=== PATIENT | male | born 1945 | race Caucasian/White ===

== ENCOUNTER 2017-07-04 07:50 | Outpatient (CLI) | payer MEDICARE, OTHER ==
[~2017-07-04] VITALS: Ht 172.7 cm; Wt 76.4 kg
--- NOTE | ~2017-07-04 | HEMODYNAMI ---
PATIENT:BLAIR ARVIZU MEDICAL RECORD: [id number] : 49 LOCATION:[facility] ADMISSION DATE: 07/04/17 Generatedon:07/04/201711:45 Patient name: BLAIR ARVIZU Patient #: [id number] SSN: : 1945 Date of study: 07/04/2017 Page: Of Hemodynamic Procedure Report Patient Data Patient Demographics Procedure consent was obtained First Name: BLAIR Gender: Male Last Name: LUH : 1945 [facility] Initial: NOLBERTO Age: 71 year(s) Patient #: [id number] Race: Unknown Additional ID: [id number] Contact details [address]: [address] [place] [address] State: [place] City: [place] Zip code: [address] Past Medical History Allergies Allergen Reaction Date Comments Reported Other allergy 07/04/2017 TETANUS VACCINES, TOXOID Admission Admission Data Admission Date: 07/04/2017 Admission Time: 7:50 Height (in.): 5.8 BSA: 0.32 (m2) Height (cm.): 14.73 BMI: 3469.37 (kg/m2) Weight (lbs.): 166 Weight (kg.): 75.3 Lab Results Lab Result Date: 07/04/2017 Lab Result Time: 0:00 Biochemistry Name Units Result Min Max BUN mg/dl 12 --(-*--)-- 7 18 Creatinine mg/dl 1.1 --(--*-)-- 0.6 1.3 CBC Name Units Result Min Max Hemoglobin g/dl 15.7 --(--*-)-- 13.5 17.5 Procedure Procedure Types Cath Procedure Diagnostic Procedure [facility] w/Coronaries FFR/IVUS FFR Initial Intra-Coronary IVUS Initial PCI Procedure Coronary Stent Coronary Stent Initial Miscellaneous Procedures Moderate Sedation up to 30 minutes Procedure Description Procedure Date Procedure Date: 07/04/2017 Procedure Start Time: 11:15 Procedure End Time: 11:45 Procedure Staff Name Function Adrienne Bond RN Nurse Steven Pinedo MD Performing Physician Juan Carlos Lin RT Scrub [facility] RT Monitor Procedure Data Cath Procedure Fluoroscopy Diagnostic fluoroscopy Total fluoroscopy Time: 6.4 time: 6.4 min min Diagnostic fluoroscopy Total fluoroscopy dose: dose: 180.74 mGy 180.74 mGy Contrast Material Contrast Material Type Amount (ml) Isovue 300 95 Entry Location Entry Primary Successful Side Size Upsize Upsize Entry Closure Succes sful Closure Location (Fr) 1 (Fr) 2 (Fr) Remarks Device Remarks Radial Right 6 Fr artery Short Femoral Right 6 Fr Exoseal artery Short Estimated blood loss: 10 ml Diagnostic catheters Device Type Used For End Catheter Placement DIAGNOSTIC [place] 110cm 5 Procedure Fr catheter ([id number]) DIAGNOSTIC 3DRC 5Fr Procedure catheter ([id number]) Procedure Complications No complications Procedure Medications Medication Administration Route Dosage Oxygen NC 2 l/min Lidocaine 2% added to field 20 Heparin Flush Bag added to field 2 bags (1000units/500ml NS) 0.9% NaCl I.V. 100 ml/hr Radial Cocktail I.A. 1 syringe (Verapomil 2mg/Nitro 400mcg/Heparin 1500units) Versed I.V. 1 mg Fentanyl I.V. 50 mcg Versed I.V. 1 mg Fentanyl I.V. 50 mcg Versed I.V. 1 mg Fentanyl I.V. 50 mcg Heparin Bolus I.V. 4000 units Integrilin (Bolus I.V. 6.8 ml 2mg/ml) Plavix P.O. 600 mg Hemodynamics Rest BSA: 0.32 (m2) HGB: 15.7 (g/dl) O2 Consumption: Estimated: 35.18 (ml/min) O2 Con sumption indexed: Estimated:109.94 (ml/min/m) Heart Rate: 54 (bpm) Snapshots Pre Cath Intra NCS Post Cath Vital Signs Time Heart Resp SPO2 etCO2 NIBP (mmHg) Rhythm Pain Sedation Rate (ipm) (%) (mmHg) Status Level (bpm) 10:50:11 54 19 100 9.1 134/74(107) NSR 0 (11) 10(A) , No pain 10:54:27 60 17 99 13.6 134/76(108) NSR 0 (11) 10(A) , No pain 10:58:41 67 17 96 0 132/70(117) NSR 0 (11) 10(A) , No pain 11:02:39 59 15 92 21.2 107/75(95) NSR 0 (11) 10(A) , No pain 11:06:46 60 15 96 0 116/65(97) NSR 0 (11) 10(A) , No pain 11:11:45 60 15 97 30.4 73/51(61) NSR 0 (11) 10(A) , No pain 11:16:28 62 14 94 0 114/73(94) NSR 0 (11) 9(A) , No pain 11:20:36 73 15 96 0 119/80(112) NSR 0 (11) 9(A) , No pain 11:24:46 67 15 95 0 117/77(107) NSR 0 (11) 9(A) , No pain 11:28:58 83 16 93 0 124/63(91) NSR 0 (11) 9(A) , No pain 11:33:12 75 16 94 0 116/67(95) NSR 0 (11) 9(A) , No pain 11:37:22 78 15 94 0 117/73(86) NSR 0 (11) 10(A) , No pain 11:41:33 73 16 96 0 97/65(89) NSR 0 (11) 10(A) , No pain Medications Time Medication Route Dose Verified Delivered Reason Note s Effectiveness by by 10:53:18 Oxygen NC 2 l/min Steven Deleon used for Khris Bond RN procedure 10:53:28 Lidocaine 2% added 20ml Steven Harris for local to vial Khris Pinedo MD anesthetic field 10:53:34 Heparin Flush added 2 bags Steven Harris used for Bag to Khris Pinedo MD procedure (1000units/500ml field NS) 10:53:43 0.9% NaCl I.V. 100 Steven Deelon Per physician ml/hr Khris Bond RN 11:13:47 Versed I.V. 1 mg Steven Deleon for sedation Khris Bond RN 11:13:53 Fentanyl I.V. 50 mcg Steven Deleon for sedation Khris Bond RN 11:16:57 Radial Cocktail I.A. 1 Steven Harris for (Verapomil syringe Khris Pinedo MD vasodilation 2mg/Nitro 400mcg/Heparin 1500units) 11:17:59 Versed I.V. 1 mg Steven Deleon for sedation Khris Bond RN 11:18:03 Fentanyl I.V. 50 mcg Steven Deleon for sedation Khris Bond RN 11:22:15 Versed I.V. 1 mg Steven Deleon for sedation Khris Bond RN 11:22:19 Fentanyl I.V. 50 mcg Steven Deleon for sedation Khris Bond RN 11:27:16 Heparin Bolus I.V. 4000 Steven Deleon for veri fied units Khris Bond RN anticoagulation with dr pinedo 11:32:18 Integrilin I.V. 6.8 ml Steven Deleon for wast ed (Bolus 2mg/ml) Khris Bond RN antiplatelet 3.2 ml therapy of vial 11:39:48 Plavix P.O. 600 mg Steven Deleon for Khris Bond RN antiplatelet therapy Procedure Log Time Note 10:34:43 Adrienne Bond RN sent for patient. Start room use. 10:34:45 Time tracking: Regular hours 10:34:49 Plan of Care:Hemodynamics will remain stable., Cardiac rhythm will remain stable., Comfort level will be maintained., Respiratory function will remain adequate., Patient/ family verbilizes understanding of procedure., Procedure tolerated without complication., Recovers from procedure without complications.. 10:34:51 Signed procedure consent form obtained from patient. 10:35:58 H&P Date Dictated: 06/16/2017 Within 30 days and on chart., H&P Addendum completed by physician on day of procedure. (MUST COMPLETE FOR ALL OUTPATIENTS). 10:36:24 Patient Height : 5.8 inches 10:36:28 Patient Weight : 166 lbs 10:38:51 Lab Result : BUN 12 mg/dl 10:38:51 Lab Result : Creatinine 1.1 mg/dl 10:38:51 Lab Result : Hemoglobin 15.7 g/dl 10:38:54 Lab results completed and on chart. 10:39:17 Patient allergic to Other allergyTETANUS VACCINES, TOXOID 10:41:59 Patient received from Pre/Post Procedure Room to [facility] 3 Alert and oriented. Tansferred to table in Supine position. 10:42:00 Warm blankets applied, and ev hugger turned on for patient comfort. 10:42:01 Correct patient and procedure confirmed by team. 10:42:02 ECG and BP/O2 sat monitors applied to patient. 10:49:07 Vital chart was started 10:49:08 Baseline sample Acquired. 10:49:13 Rhythm: sinus rhythm 10:49:15 Full Disclosure recording started 10:49:19 Pre-procedure instructions explained to patient. 10:49:19 Pre-op teaching completed and patient verbalized understanding. 10:49:22 Family in waiting room. 10:49:32 Is the patient allergic to Iodine/contrast media? No. 10:49:34 Is patient on blood thinner?No 10:49:37 Patient diabetic? No. 10:49:39 ----Pre-sedation anethsthesia assessment.---- 10:49:42 Previous problem with sedation/anesthesia? No ? 10:49:45 Snore? No 10:49:47 Sleep apnea? No 10:49:50 Deviated septum? No 10:49:51 Opens mouth fully? Yes 10:49:52 Sticks out tongue? Yes 10:49:55 Airway obstruction? No ? 10:50:03 Dentures? Yes IN TIGHT 10:50:09 Pre procedure: right dorsailis pedis pulse 2+ Normal; easily identifiable; not easily obliterated 10:50:12 Modified Lenny's test Ulnar < 7 seconds 10:50:22 Patient pain scale 0/10 ?. 10:50:35 IV patent on arrival in left hand with 0.9% NaCl at KVO. 10:50:42 Right Radial & Right Groin area was prepped with chlora-prep and draped in sterile fashion 10:50:43 Alarms reviewed by R. N. 10:50:44 Sharps counted by scrub and verified by R.N. 10:53:18 Oxygen 2 l/min NC was administered by Adrienne Bond RN; used for procedure; 10:53:28 Lidocaine 2% 20ml vial added to field was administered by Steven Pinedo MD; for local anesthetic; 10:53:34 Heparin Flush Bag (1000units/500ml NS) 2 bags added to field was administered by Steven Pinedo MD; used for procedure; 10:53:43 0.9% NaCl 100 ml/hr I.V. was administered by Adrienne Bond RN; Per physician; 10:58:18 Use device set Radial Dx or PCI 10:58:19 ACIST Syringe (89657) opened to sterile field. 10:58:21 ACIST Manifold (03380) opened to sterile field. 10:58:22 ACIST Hand Control (37252) opened to sterile field. 10:58:24 Bag Decanter (2002S) opened to sterile field. 10:58:24 SHEATH 6FR Slender ([id number]) opened to sterile field. 10:58:26 Medline Cath Pack ([id number]) opened to sterile field. 10:58:27 Tegaderm 4 x 4 (1626W) opened to sterile field. 10:58:29 DIAGNOSTIC WIRE .035 260cm J wire (618912) opened to sterile field. 10:58:29 MBrace Wrist Support ([id number]) opened to sterile field. 11:05:46 Zero performed for pressure channel P1 11:12:21 --------ALL STOP TIME OUT------ 11:12:21 Final Timeout: patient, procedure, and site verified with staff and physician. All members of the team are in agreement. 11:12:24 Right Radial & Right Groin site verified by team. 11:12:28 Physical assessment completed. ASA score P 2 - A patient with mild systemic disease as per Steven Pinedo MD. 11:12:32 Sedation plan: IV Moderate Sedation Medication:Versed, Fentanyl 11:13:47 Versed 1 mg I.V. was administered by Adrienne Bond RN; for sedation; 11:13:53 Fentanyl 50 mcg I.V. was administered by Adrienne Bond RN; for sedation; 11:15:25 Procedure started. 11:15:31 Local anesthetic to right radial artery with Lidocaine 2% by Steven Pinedo MD.INITIAL ACCESS ONLY 11:16:10 A 6 Fr Short sheath was inserted into the Right Radial artery 11:16:18 A DIAGNOSTIC [place] 110cm 5 Fr catheter (082728) was advanced over the wire and used for Procedure. 11:16:57 Radial Cocktail (Verapomil 2mg/Nitro 400mcg/Heparin 1500units) 1 syringe I.A. was administered by Steven Pinedo MD; for vasodilation; 11:17:39 LV gram done using CHEATHAM 11:17:43 Injector settings: Ml/sec: 7, Volume: 15, 11:17:59 Versed 1 mg I.V. was administered by Adrienne Bond RN; for sedation; 11:18:03 Fentanyl 50 mcg I.V. was administered by Adrienne Bond RN; for sedation; 11:18:14 EF : 60 % 11:20:39 GUIDE 6FR AR 2.0 catheter (IX0KH03) opened to sterile field. 11:21:02 UNABLE TO GUIDE CATHETERS. WILL GO TO FEMORAL 11:21:21 SHEATH 6FR Jackson (GSC641) opened to sterile field. 11:21:28 Local anesthetic to right femoral artery with Lidocaine 2% by Steven Pinedo MD.ADDITIONAL ACCESS 11:22:09 PERCUTANEOUS ENTRY 19GA needle opened to sterile field. 11:22:15 Versed 1 mg I.V. was administered by Adrienne Bond RN; for sedation; 11:22:19 Fentanyl 50 mcg I.V. was administered by Adrienne Bond RN; for sedation; 11:22:40 A 6 Fr Short sheath was inserted into the Right Femoral artery 11:23:01 A DIAGNOSTIC 3DRC 5Fr catheter ([id number]) was advanced over the wire and used for Procedure. 11:23:58 RCA angiography performed. 11:24:21 Catheter exchanged over wire. 11:25:17 GUIDE 6FR XBLAD 3.5 catheter ([id number]) opened to sterile field. 11:25:28 6 Fr XBLAD 3.5 guide catheter was inserted over the wire 11:26:42 LCA angiography performed. 11:27:15 INFLATOR Merit BasixCompak (AU2466) opened to sterile field. 11:27:16 Heparin Bolus 4000 units I.V. was administered by Adrienne Bond RN; for anticoagulation; verified with dr pinedo 11:27:25 [place] IVUS Catheter (30276I) opened to sterile field. 11:28:07 CHOICE PT Floppy J 300cm guide wire ([id number]) opened to sterile field. 11:28:47 PT GRAPHIX wire advanced. 11:28:49 Wire advanced across lesion. 11:29:31 IVUS catheter advanced over wire. 11:31:02 IVUS PASS TO LEFT. MAIN LESION PERFORMED 11::04 IVUS PASS TO LAD LESION PERFORMED 11:31:04 IVUS catheter removed over wire. 11:32:18 Integrilin (Bolus 2mg/ml) 6.8 ml I.V. was administered by Adrienne Bond RN; for antiplatelet therapy; wasted 3.2 ml of vial 11:32:32 Inflation Number: 1 A INTEGRITY OTW 3.0 X 22 stent ([id number]) was prepped and advanced across the LMCA. The stent was deployed at 17 JEFF for 0:10 (min:sec). 11:34:33 Stent catheter was removed intact over wire. 11:34:34 Wire removed. 11:34:35 Guide catheter removed. 11:34:41 EXOSEAL 6Fr (EX600) opened to sterile field. 11:34:47 TR BAND Standard ([id number]) opened to sterile field. 11:35:14 Sheath removed intact; hemostasis achieved with Exoseal to the Right Femoral artery. 11:35:16 Procedure ended.(Physican Out) 11:35:21 Contrast amount:Isovue 300 95ml. 11:35:29 Fluoroscopy time 06.40 minutes. 11:35:46 Fluoroscopy dose: 180.74 mGy 11:35:46 Flurop Dose total: 180.74 11:36:26 TR band inflated with 12cc of air. 11:36:30 Insertion/operative site no bleeding no hematoma. 11:36:32 Post-op/insertion site Right Femoral artery dressed using a 4 x 4 and Tegaderm. 11:36:36 Post right femoral artery:stable, soft, clean and dry 11:36:45 Post-procedure physical assessment completed. ASA score P 2 - A patient with mild systemic disease as per Steven Pinedo MD. 11:36:49 Post procedure rhythm: unchanged. 11:36:51 Estimated blood loss: 10 ml 11:36:53 Post procedure instruction explained to patient.Patient verbalizes understanding. 11:36:54 Patient needs reinforcement of post procedure teaching. 11:39:18 Procedure type changed to Cath procedure, Diagnostic procedure, LHC, LHC w/Coronaries, FFR/IVUS, FFR Initial, Intra-Coronary IVUS Initial, PCI procedure, Coronary Stent, Coronary Stent Initial, Miscellaneous Procedures, Moderate Sedation up to 30 minutes 11:39:48 Plavix 600 mg P.O. was administered by Adrienne Bond RN; for antiplatelet therapy; 11:44:56 Procedure and supply charges have been captured, reviewed, submitted and are correct. 11:44:58 Procedure Complication : No complications 11:45:00 Vital chart was stopped 11:45:01 See physician's report for complete and final results. 11:45:03 Report given to Pre/Post Procedure Room. 11:45:05 Patient transfered to Pre/Post Procedure Room with Bed. 11:45:07 Procedure ended. 11:45:07 Full Disclosure recording stopped 11:45:11 End room use (Document Last) Intervention Summary Intervention Notes Time ActionType Lesion and Equipment Action# Pressure Duration Attributes Used 11:32:32 Place stent LMCA INTEGRITY 1 17 00:10 OTW 3.0 X 22 stent ([id number]) Device Usage Item Name Manufacture Quantity Catalog Number Hospital Part Current Mini mal Lot# / Charge Number Stock Stock Serial# Code ACIST Acist 1 92405 535305 584988 300209 20 Syringe Medical (01803) Systems Inc ACIST Acist 1 89387 529016 510106 246591 5 Manifold Medical (25482) Systems Inc ACIST Hand Acist 1 19962 854195 333544 431156 5 Control Medical (09475) Systems Inc Bag Decanter Microtek 1 2002S 437363 86326 680380 5 (2001S) Medical Inc. SHEATH 6FR Terumo 1 [id number] 005647 546289 924607 40 Slender ([id number]) Medline Cath Cardinal 1 [id number] 104616 21963 844913 5 [facility] ([id number]) Tegaderm 4 x 3M 1 1626W 637410 085711 866024 5 4 (1626W) DIAGNOSTIC [place] 1 317167 897250 511631 822379 30 WIRE .035 260cm J wire (472841) MBrace Wrist Advanced 1 140-0250-00 445330 60106 714315 5 Support Vascular (604212025) Dynamics DIAGNOSTIC Terumo 1 40-8523 061812 263069 772069 5 [place] 110cm 5 Fr catheter (337673) GUIDE 6FR AR Medtronic 1 RY2QV19 922607 72810 332122 1 2.0 catheter (HL4NQ39) SHEATH 6FR Terumo 1 IZY789 629222 549287 438517 40 Jackson (WPJ591) PERCUTANEOUS [place] Medical 1 K88907 957051 515453 5 ENTRY 19GA needle DIAGNOSTIC Cardinal 1 374306M 037585 113268 517973 9 3DRC 5Fr Health catheter (638924J) GUIDE 6FR Cardinal 1 29853950 599954 488537 378331 10 XBLAD 3.5 Health catheter (32430252) INFLATOR [facility] 1 TU7527 886601 687053 609384 15 [facility] Medical BasixCompak (VX1565) [place] 1 63335Q 347502 134221 061255 8 [place] IVUS Catheter (86569H) CHOICE PT [place] 1 [id number] 390436 798116 5 Floppy Venyo Scientific 300cm guide wire (6740940M3) INTEGRITY Medtronic 1 [id number] 962143 890287 6 [id number] OTW 3.0 X 22 stent ([id number]) EXOSEAL 6Fr Cardinal 1 EX600 311458 239256 757782 10 (EX600) Health TR BAND Terumo 1 QAT73-IUY 507245 903162 014946 40 Standard (UMJ10DMA) Signature Audit [place] Stage Time Signature Unsigned Intra-Procedure 07/04/2017 Kelli Amaral 11:45:24 AM RT(R) Signatures Monitor : Kelli Amaral Signature : RT Date : Time : [address] [address]
--- NOTE | ~2017-07-04 | OP ---
PATIENT NAME: BLAIR ARVIZU MEDICAL RECORD: [id number] :49 LOCATION:D.CAT ADMISSION DATE: SURGEON: RAKESH CARPENTER MD DATE OF OPERATION: 07/04/2017 PROCEDURES: 1. PTCA stent to left main. 2. Intravascular ultrasound of the LAD and left main. 3. Left heart catheterization. 4. Selective coronary angiography. 5. Left ventriculogram. INDICATION: Angina and coronary artery disease. PROCEDURE IN DETAIL: After informed consent was obtained and after detailed explanation of risks, benefits as well as alternative therapies, the patient elected to proceed with angiogram and angioplasty. The right femoral area was prepped and draped in normal sterile fashion. The right femoral artery was cannulated via modified Seldinger technique with placement of a 6-Bahraini sheath. All catheters exchanged through this sheath. FINDINGS: The left ventriculogram was performed in the standard 30-degree CHEATHAM view reveals good cardiac wall motion throughout all segments. Overall ejection fraction estimated 60%. SELECTIVE CORONARY ANGIOGRAPHY: 1. Left main has 70% to 80% stenosis distally. 2. Left anterior descending has 70% to 80% stenosis proximally. This is the continuation of the left main stenosis. 3. The left circumflex shows moderate irregularities, but no flow-limiting stenosis. 4. Right coronary artery has moderate irregularities, but no flow-limiting stenosis. PTCA STENT OF THE LEFT MAIN, LEADING INTO THE LAD: The stent used was a 3.0 x 22 mm Integrity taken to 17 atmospheres. Result was 0% residual stenosis. OVERALL IMPRESSION: Successful percutaneous transluminal coronary angioplasty stent of the left main going from 70% to 80% initial stenosis to 0% residual. TRANSINT:[id number] Voice Confirmation ID: [id number] DOCUMENT ID: [id number] RAKESH CARPENTER MD at 1800 CC: [id number] DICTATION DATE: 07/04/17 1144 DIE SET UP WORKER: 07/04/17 1401 [facility] CLI 07/04/[address] [address]
[2017-07-04] MEDS ORDERED: NEURONTIN 300300 MG PO (08:12)
[2017-07-04 08:36] VITALS: BP 164/55; Ht 172.7 cm; Wt 76.4 kg
[2017-07-04 08:38] LABS: BASOPHILS 0.6 % (0-2); EOSINOPHILS 6.7 % (0-7); HEMATOCRIT 46.8 % (42.0-54.0); HEMOGLOBIN 15.7 g/dL (13.5-17.5); IMMATURE GRANULOCYTES 0.2 % (0-5); LYMPHOCYTES 25.9 % (15-50); MCH 30.8 pg (26.0-34.0); MCHC 33.5 g/dL (31.0-37.0); MCV 91.9 fL (80.0-100.0); MEAN PLATELET VOLUME 8.7 fL (7.4-10.4); MONOCYTES 9.9 % (2-11); NEUTROPHILS 56.7 % (40-80); PLATELET COUNT 291 10x3/uL (130-400); RBC 5.09 10x6/uL (4.20-6.10); RDW 13.6 % (11.5-14.5); WBC 8.8 10x3/uL (4.8-10.8)
[2017-07-04 08:52] LABS: ANION GAP 12.2 mmol/L (8-16); CALCIUM 8.7 mg/dL (8.5-10.1); CARBON DIOXIDE 27.3 mmol/L (21.0-32.0); CREATININE - SERUM 1.1 mg/dL (0.6-1.3); POTASSIUM - SERUM 3.5 mmol/L (3.5-5.1)
[2017-07-04] MEDS ORDERED: BAYER CHEWABLE81 MG PO (11:47)
[2017-07-04] MEDS ORDERED: PLAVIX75 MG PO (11:47)
== END 2017-07-04 16:00 | disposition home or self-care (01) ==
LOC: D.CATH 07:50
PROVIDERS: Internal Medicine Interventional Cardiology
DX: I25.119 Atherosclerotic heart disease of native coronary artery with unspecified angina pectoris (principal); Z01.812 Encounter for preprocedural laboratory examination

== ENCOUNTER → 2017-08-01 08:07 | Outpatient (CLI) | payer MEDICARE, OTHER ==
[2017-07-04 08:36] VITALS: BMI 25.6
[~2017-08-01 08:07] MED LIST: BAYER CHEWABLE81 MG PO; NEURONTIN 300300 MG PO; PLAVIX75 MG PO
== END | disposition home or self-care (01) ==
LOC: D.US 08:07
DX: M79.604 Pain in right leg (principal); M79.605 Pain in left leg; I70.219 Atherosclerosis of native arteries of extremities with intermittent claudication, unspecified extremity

== ENCOUNTER 2018-09-15 08:44 | Outpatient (CLI) | payer MEDICARE, OTHER ==
[~2018-09-15] VITALS: Ht 172.7 cm; Wt 72.7 kg
--- NOTE | ~2018-09-15 | HEMODYNAMI ---
PATIENT:BLAIR ARVIZU MEDICAL RECORD: [id number] : 49 LOCATION:[facility] ADMISSION DATE: 09/15/18 Generatedon:09/15/201811:28 Patient name: BLAIR ARVIZU Patient #: [id number] SSN: : 1945 Date of study: 09/15/2018 Page: Of Hemodynamic Procedure Report Patient Data Patient Demographics Procedure consent was obtained First Name: BLAIR Gender: Male Last Name: LUH : 1945 [facility] Initial: NOLBERTO Age: 72 year(s) Patient #: [id number] Race: Unknown Additional ID: [id number] Contact details [address]: [address] [place] [address] State: [place] City: [place] Zip code: [address] Past Medical History Allergies Allergen Reaction Date Comments Reported Other allergy 07/04/2017 TETANUS VACCINES, TOXOID Other allergy 09/15/2018 TETANUS Admission Admission Data Admission Date: 09/15/2018 Admission Time: 8:44 Height (in.): 68 BSA: 1.86 (m2) Height (cm.): 172.72 BMI: 24.47 (kg/m2) Weight (lbs.): 160.94 Weight (kg.): 73 Lab Results Lab Result Date: 09/15/2018 Lab Result Time: 0:00 Biochemistry Name Units Result Min Max BUN mg/dl 21 --(----)-* 7 18 Creatinine mg/dl 1.2 --(---*)-- 0.6 1.3 CBC Name Units Result Min Max Hemoglobin g/dl 14 --(*---)-- 13.5 17.5 Procedure Procedure Types Cath Procedure Diagnostic Procedure [facility] w/Coronaries PCI Procedure Coronary Stent Coronary Stent Initial x2 PTCA PTCA Additional Procedure Description Procedure Date Procedure Date: 09/15/2018 Procedure Start Time: 11:00 Procedure End Time: 11:25 Procedure Staff Name Function Steven Pinedo MD Performing Physician Daniel Collado RT Monitor Kelli Amaral RT Scrub Bipin Payton RN Nurse Procedure Data Cath Procedure Fluoroscopy Diagnostic fluoroscopy Total fluoroscopy Time: 7.2 time: 7.2 min min Diagnostic fluoroscopy Total fluoroscopy dose: 788 dose: 788 mGy mGy Contrast Material Contrast Material Type Amount (ml) Isovue 300 79 Entry Location Entry Primary Successful Side Size Upsize Upsize Entry Closure Succes sful Closure Location (Fr) 1 (Fr) 2 (Fr) Remarks Device Remarks Femoral Right 5 Fr 6 Fr Exoseal artery Short Estimated blood loss: 10 ml Diagnostic catheters Device Type Used For End Catheter Placement MULTIPACK Pigtail 5 Fr Procedure catheter MULTIPACK JL 4.0 5Fr Procedure catheter MULTIPACK 3DRC 5Fr Procedure catheter Procedure Complications No complications Procedure Medications Medication Administration Route Dosage Oxygen etCO2 Nasal cannula 2 l/min Heparin Flush Bag added to field 2 bags (1000units/500ml NS) 0.9% NaCl I.V. 100 ml/hr Lidocaine 2% added to field 20 Fentanyl I.V. 50 mcg Versed I.V. 1 mg Fentanyl I.V. 50 mcg Versed I.V. 1 mg Hemodynamics Rest BSA: 1.86 (m2) HGB: 14 (g/dl) O2 Consumption: Estimated: 211.43 (ml/min) O2 Cons umption indexed: Estimated:113.67 (ml/min/m) Heart Rate: 65 (bpm) Pressure Samples Time Site Value (mmHg) Purpose Heart Use Rate(bpm) 11:11 AO 108/57(79) Snapshot 81 Snapshots Pre Cath Intra NCS Post Cath Vital Signs Time Heart Resp SPO2 etCO2 NIBP (mmHg) Rhythm Pain Sedation Rate (ipm) (%) (mmHg) Status Level (bpm) 10:35:10 66 17 99 0 134/71(99) NSR 0 (11) 10(A) , No pain 10:39:15 64 17 100 16.4 136/78(107) NSR 0 (11) 10(A) , No pain 10:43:25 64 16 91 12.7 143/72(101) NSR 0 (11) 10(A) , No pain 10:47:37 72 17 97 30 129/70(89) NSR 0 (11) 10(A) , No pain 10:51:45 73 16 97 28.5 124/68(96) NSR 0 (11) 10(A) , No pain 10:55:53 73 16 97 27.7 121/67(93) NSR 0 (11) 10(A) , No pain 10:59:59 74 16 96 29.2 113/65(82) NSR 0 (11) 9(A) , No pain 11:04:03 77 16 94 27.7 109/61(95) NSR 0 (11) 9(A) , No pain 11:08:02 78 16 95 33 124/70(85) NSR 0 (11) 9(A) , No pain 11:12:08 83 17 96 32.2 114/65(89) NSR 0 (11) 9(A) , No pain 11:16:14 78 16 96 30.7 118/62(87) NSR 0 (11) 9(A) , No pain 11:20:22 79 16 97 30 115/59(80) NSR 0 (11) 9(A) , No pain 11:23:34 78 17 97 29.2 121/63(91) NSR 0 (11) 9(A) , No pain Medications Time Medication Route Dose Verified Delivered Reason Notes Effe ctiveness by by 10:35:14 Oxygen etCO2 2 Steven Bipin Per Nasal l/min Khris Payton RN physician cannula 10:35:21 Heparin Flush added 2 Steven Bipin used for Bag to bags Khris Payton RN procedure (1000units/500ml field NS) 10:35:29 0.9% NaCl I.V. 100 Steven Bipin Per ml/hr Khris Payton RN physician 10:35:39 Lidocaine 2% added 20ml Steven Bipin used for to vial Khris Payton RN procedure field 10:57:43 Fentanyl I.V. 50 Steven Alejandray for mcg Khris Payton RN sedation 10:57:49 Versed I.V. 1 mg Steven Bipin for Khris Payton RN sedation 11:00:46 Fentanyl I.V. 50 Steven Bipin for mcg Khris Payton RN sedation 11:00:48 Versed I.V. 1 mg Steven Alejandray for Khris Payton RN sedation Procedure Log Time Note 10:17:04 Diagnostic Cath status Elective 10:17:05 Signed procedure consent form obtained from patient. 10:17:07 Daniel Bardolph RT(R) sent for patient. Start room use. 10:27:06 H&P Date Dictated: 09/13/2018 Within 30 days and on chart., H&P Addendum completed by physician on day of procedure. (MUST COMPLETE FOR ALL OUTPATIENTS). 10:28:07 Patient allergic to Other allergyTETANUS 10:28:14 Patient Height : 68 inches 10:28:17 Patient Weight : 160.94 lbs 10:28:34 Patient received from Pre/Post Procedure Room to CCL 2 Alert and oriented. Tansferred to table in Supine position. 10:28:35 Warm blankets applied, and ev hugger turned on for patient comfort. 10:28:35 Correct patient and procedure confirmed by team. 10:28:36 ECG and BP/O2 sat monitors applied to patient. 10:33:55 Vital chart was started 10:35:14 Oxygen 2 l/min etCO2 Nasal cannula was administered by Bipin Payton RN; Per physician; 10:35:21 Heparin Flush Bag (1000units/500ml NS) 2 bags added to field was administered by Bipin Payton RN; used for procedure; 10:35:29 0.9% NaCl 100 ml/hr I.V. was administered by Bipin Payton RN; Per physician; 10:35:39 Lidocaine 2% 20ml vial added to field was administered by Bipin Payton RN; used for procedure; 10:39:15 Baseline sample Acquired. 10:39:19 Rhythm: sinus rhythm 10:39:20 Full Disclosure recording started 10:39:21 Pre-procedure instructions explained to patient. 10:39:22 Pre-op teaching completed and patient verbalized understanding. 10:39:24 Family in patients room. 10:39:25 Patient NPO since Midnight. 10:39:26 Is the patient allergic to Iodine/contrast media? No. 10:39:30 Is patient on blood thinner?Yes 10:39:32 ACC The patient was administered the following blood thiners within the last 24 hours: ACCPlavix 10:39:34 Patient diabetic? Yes. 10:39:35 If diabetic: On Metformin? Yes 10:39:38 If on Metformin: Last Dose? 09/13/2018 10:39:40 Previous problem with sedation/anesthesia? No ? 10:39:41 Snore? Yes 10:39:43 Sleep apnea? No 10:39:44 Deviated septum? No 10:39:44 Opens mouth fully? Yes 10:39:45 Sticks out tongue? Yes 10:39:48 Airway obstruction? No ? 10:39:51 Dentures? Yes OUT 10:39:54 Pre procedure: right dorsailis pedis pulse 1+ Palpable, but thready & weak; easily obliterated 10:39:57 Patient pain scale 0/10 ?. 10:40:03 IV patent on arrival in right forearm with 0.9% NaCl at [facility]. 10:40:04 Lab results completed and on chart. 10:40:08 Right groin area was prepped with chlora-prep and draped in sterile fashion 10:40:10 Alarms reviewed by R. N. 10:40:10 Sharps counted by scrub and verified by R.N. 10:40:14 Use device set Femoral Dx 10:40:15 Tegaderm 4 x 4 (1626W) opened to sterile field. 10:40:16 ACIST Manifold (32456) opened to sterile field. 10:40:17 ACIST Hand Control (58712) opened to sterile field. 10:40:18 ACIST Syringe (54266) opened to sterile field. 10:40:19 Bag Decanter (2002S) opened to sterile field. 10:40:19 Medline Cath Pack ([id number]) opened to sterile field. 10:40:20 DIAGNOSTIC WIRE .035 260cm J wire (257958) opened to sterile field. 10:40:21 DIAGNOSTIC Multipack 5Fr catheter set (GK4060) opened to sterile field. 10:40:22 SHEATH 5FR [place] (AYH581) opened to sterile field. 10:45:52 Lab Result : BUN 21 mg/dl 10:45:52 Lab Result : Hemoglobin 14 g/dl 10:45:52 Lab Result : Creatinine 1.2 mg/dl 10:56:05 --------ALL STOP TIME OUT------ 10:56:06 Final Timeout: patient, procedure, and site verified with staff and physician. All members of the team are in agreement. 10:56:08 Right groin site verified by team. 10:56:11 Maximum allowable Isovue 300 dose 300ml. Physician notified. (300ml for normal creatinines. For patients with creatinine of 1.7 or higher multiply weight(kg) x 5 divided by creatinine.) 10:56:15 Fire Safety Assessment: A--An alcohol-based skin anteseptic being used preoperatively., C--Open oxygen or nitrous oxide is being used., D--An ESU, laser, or fiber-optic light is being used. 10:56:18 Physical assessment completed. ASA score P 2 - A patient with mild systemic disease as per Steven Pinedo MD. 10:56:20 Sedation plan: IV Moderate Sedation Medication:Versed, Fentanyl 10:57:43 Fentanyl 50 mcg I.V. was administered by Bipin Payton RN; for sedation; 10:57:49 Versed 1 mg I.V. was administered by Bipin Payton RN; for sedation; 11:00:35 Procedure started. 11:00:38 Local anesthetic to right femoral artery with Lidocaine 2% by Steven Pinedo MD.INITIAL ACCESS ONLY 11:00:46 Fentanyl 50 mcg I.V. was administered by Bipin Payton RN; for sedation; 11:00:48 Versed 1 mg I.V. was administered by Bipin Payton RN; for sedation; 11:01:59 A 5 Fr sheath was inserted into the Right Femoral artery 11:02:15 A MULTIPACK Pigtail 5 Fr catheter was advanced over the wire and used for Procedure. 11:02:35 LV angiography performed. 11:02:36 LV gram done using CHEATHAM 11:02:40 EF : 50 % 11:02:44 Injector settings: Ml/sec: 10, Volume: 20, 11:02:47 Catheter removed. 11:02:52 A MULTIPACK JL 4.0 5Fr catheter was advanced over the wire and used for Procedure. 11:03:58 LCA angiography performed. 11:04:00 Catheter removed. 11:04:05 A MULTIPACK 3DRC 5Fr catheter was advanced over the wire and used for Procedure. 11:04:44 RCA angiography performed. 11:04:46 Catheter removed. 11:04:50 Use device set [facility] PCI 11:04:52 SHEATH 6FR [place] (REQ797) opened to sterile field. 11:04:55 GUIDE 6FR XBLAD 3.5 catheter ([id number]) opened to sterile field. 11:05:09 CHOICE PT Extra Support 182cm wire ([id number]) opened to sterile field. 11:05:12 INFLATOR Merit [place] (MA8566) opened to sterile field. 11:05:40 CHOICE PT Extra Support 182cm wire ([id number]) opened to sterile field. 11:05:58 Sheath upsized to a 6 Fr Short. 11:06:17 6 Fr XBLAD 3.5 guide catheter was inserted over the wire 11:06:28 CPTXS wire advanced. 11:06:59 Wire advanced across lesion. 11:07:43 1st wire advanced down the LAD. 11:07:47 CPTXS wire advanced. 11:08:04 2nd wire advanced down the CIRC. 11:09:08 Inflate balloon Inflation number: 1 A EUPHORA 2.0 x 10 Balloon ([id number]) was prepped and advanced across the Prox CX, then inflated to 21 JEFF for 0:10 (min:sec). 11:09:21 Balloon removed over the wire. 11:10:53 Place stent Inflation Number: 2 A RADHA RX 3.0 x 08 stent ([id number]) was prepped and advanced across the Prox CX. The stent was deployed at 17 JEFF for 0:10 (min:sec). 11:11:02 Inflation number: 3 The stent balloon was then re-inflated across the Prox CX to 9 JEFF for 0:10 (min:sec). 11:11:05 Stent catheter was removed intact over wire. 11:11:07 Stent catheter advanced over the LAD wire. 11:12:23 Inflation number: 1 The stent balloon was then re-inflated across the Prox LAD to 11 JEFF for 0:10 (min:sec). 11:12:40 Multiple inflations made at 11 Atms. 11:13:51 Stent catheter was removed intact over wire. 11:14:29 CIRC wire removed. 11:14:41 Place stent Inflation Number: 2 A RADHA RX 3.5 x 18 stent ([id number]) was prepped and advanced across the Prox LAD. The stent was deployed at 15 JEFF for 0:10 (min:sec). 11:16:44 Stent catheter was removed intact over wire. 11:16:58 CHOICE PT Extra Support 182cm wire ([id number]) opened to sterile field. 11:17:54 Wire removed. 11:18:14 New CPTXS advanced. 11:18:49 Wire advanced down the Ramus. 11:19:39 Inflation number: 1 The EUPHORA 2.0 x 10 Balloon ([id number]) was reinflated across the Ramus, to 17 JEFF for 0:10 (min:sec). 11:20:21 EXOSEAL 6Fr (EX600) opened to sterile field. 11:20:29 Balloon removed over the wire. 11:20:30 Wire removed. 11:20:30 Guide catheter removed. 11:20:38 Sheath removed intact; hemostasis achieved with Exoseal to the Right Femoral artery. 11:20:41 Procedure ended.(Physican Out) 11:23:42 Fluoroscopy time 07.20 minutes. 11:23:45 Fluoroscopy dose: 788 mGy 11:23:45 Flurop Dose total: 788 11:23:52 Contrast amount:Isovue 300 79ml. 11:23:53 Sharps counted by scrub and verified by R.N. 11:23:54 Insertion/operative site no bleeding no hematoma. 11:23:56 Post-op/insertion site Right Femoral artery dressed using a 4 x 4 and Tegaderm. 11:23:57 Post Procedure Pulses reassessed and unchanged 11:24:00 Post-procedure physical assessment completed. ASA score P 2 - A patient with mild systemic disease as per Steven Pinedo MD. 11:24:06 Post procedure rhythm: sinus rhythm 11:24:09 Estimated blood loss: 10 ml 11:24:11 Post procedure instruction explained to patient.Patient verbalizes understanding. 11:24:11 Patient needs reinforcement of post procedure teaching. 11:24:26 Procedure type changed to Cath procedure, Diagnostic procedure, LHC, LHC w/Coronaries, PCI procedure, Coronary Stent, Coronary Stent Initial x2, PTCA, PTCA Additional 11:24:31 Procedure and supply charges have been captured, reviewed, submitted and are correct. 11:24:34 Procedure Complication : No complications 11:25:02 Vital chart was stopped 11:25:02 See physician's report for complete and final results. 11:25:04 Report given to Pre/Post Procedure Room. 11:25:06 Patient transfered to Pre/Post Procedure Room with Stretcher. 11:25:09 Procedure ended. 11:25:09 Full Disclosure recording stopped 11:27:57 End room use (Document Last) Intervention Summary Intervention Notes Time ActionType Lesion and Equipment Used Action# Pressure Duration Attributes 11:09:08 Inflate Prox CX EUPHORA 2.0 x 1 21 00:10 balloon 10 Balloon ([id number]) 11:10:53 Place stent Prox CX RADHA RX 3.0 x 2 17 00:10 08 stent ([id number]) 11:11:02 Reinflate Prox CX RADHA RX 3.0 x 3 9 00:10 stent 08 stent balloon ([id number]) 11:12:23 Reinflate Prox LAD RADHA RX 3.0 x 1 11 00:10 stent 08 stent balloon ([id number]) 11:14:41 Place stent Prox LAD RADHA RX 3.5 x 2 15 00:10 18 stent ([id number]) 11:19:39 Reinflate Ramus EUPHORA 2.0 x 1 17 00:10 balloon 10 Balloon ([id number]) Device Usage Item Name Manufacture Quantity Catalog Number Hospital Part Current M inimal Lot# / Charge Number Stock Stock Serial# Code Tegaderm 4 x 4 3M 1 [id number] 249064 096188 5 (1626W) ACIST Manifold Acist 1 05512 659700 243487 188582 5 (93447) Medical Systems Inc ACIST Hand Acist 1 71140 920001 945554 163540 5 Control Medical (94843) Systems Inc ACIST Syringe Acist 1 24497 614102 736165 095664 2 0 (54536) Medical Systems Inc Bag Decanter Microtek 1 2001S 909023 50041 435993 5 (2001S) Medical Inc. Medline Cath Medline 1 [id number] 704881 59317 399040 5 Pack ([id number]) DIAGNOSTIC St [place] 1 986988 560107 038973 097296 3 0 WIRE .035 260cm J wire (196958) DIAGNOSTIC Cardinal 1 CO8195 760864 78946 005985 3 0 Multipack 5Fr Health catheter set (KR9398) SHEATH 5FR Terumo 1 OPT521 083312 926133 884019 5 [place] (MMU825) MULTIPACK Cardinal 1 722274 5 Pigtail 5 Fr Health catheter MULTIPACK JL Cardinal 1 217862 5 4.0 5Fr Health catheter MULTIPACK 3DRC Cardinal 1 711627 5 5Fr catheter Health SHEATH 6FR Terumo 1 YHU158 619659 228505 738456 4 0 [place] (OMQ606) GUIDE 6FR Cardinal 1 [id number] 471062 693551 165412 1 0 XBLAD 3.5 Health catheter ([id number]) CHOICE PT [place] 3 [id number] 406183 783223 675827 5 Extra Support Scientific 182cm wire ([id number]) INFLATOR Merit Merit 1 YC0738 595825 441227 149479 1 5 Syntervention (AF2245) EUPHORA 2.0 x Medtronic 1 [id number] 178780 061542 795779 5 [id number] 10 Balloon ([id number]) RADHA RX 3.0 x Medtronic 1 [id number] 521575 3619624 450470 5 [id number] 08 stent ([id number]) RADHA RX 3.5 x Medtronic 1 [id number] 639194 2114371 369097 5 [id number] 18 stent ([id number]) EXOSEAL 6Fr Cardinal 1 EX600 142418 552607 207079 1 0 (EX600) Health Signature Audit [place] Stage Time Signature Unsigned Intra-Procedure 09/15/2018 Daniel Collado 11:28:13 AM RT(R) Signatures Monitor : Daniel Collado RT Signature : Date : Time : [facility] [address] [place] [address]
[2018-09-15] MEDS ORDERED: GLUCOPHAGE500 MG PO (09:07)
[2018-09-15 09:15] VITALS: BP 141/61; Ht 172.7 cm; Wt 72.7 kg
[2018-09-15 09:34] LABS: BASOPHILS 0.3 % (0-2); HEMATOCRIT 41.2 % (42.0-54.0); IMMATURE GRANULOCYTES 0.1 % (0-5); LYMPHOCYTES 13.5 % (15-50); MCH 30.2 pg (26.0-34.0); MEAN PLATELET VOLUME 8.5 fL (7.4-10.4); MONOCYTES 8.5 % (2-11); NEUTROPHILS 75.6 % (40-80); PLATELET COUNT 266 10x3/uL (130-400); RBC 4.63 10x6/uL (4.20-6.10); RDW 13.6 % (11.5-14.5); WBC 7.4 10x3/uL (4.8-10.8)
[2018-09-15 09:50] LABS: ANION GAP 12.6 mmol/L (8-16); CALCIUM 8.9 mg/dL (8.5-10.1); CARBON DIOXIDE 27.4 mmol/L (21.0-32.0); CREATININE - SERUM 1.2 mg/dL (0.6-1.3)
--- NOTE | 2018-09-15 11:35 | NUR ---
PT ARRIVED BY STRETCHER. PLACED ON MONITORS. NO FAMILY AT BEDSIDE. RIGHT GROIN DRESSING C/D/I. NO S/S OF HEMATOMA. RIGHT PEDAL PULSE [place]. CALL LIGHT WITHIN REACH.
--- NOTE | 2018-09-15 11:50 | NUR ---
PT RESTING COMFORTABLY. RIGHT GROIN DRESSING C/D/I. NO S/S OF HEMATOMA NOTED. VSS.
--- NOTE | 2018-09-15 12:00 | NUR ---
RIGHT GROIN DRESSING C/D/I. NO S/S OF HEMATOMA NOTED. VSS. DR. CARPENTER AT BEDSIDE AND SPOKE WITH PT. VSS. WILL CONTINUE TO MONITOR.
--- NOTE | 2018-09-15 12:23 | NUR ---
PT'S FAMILY AT BEDSIDE. UPDATED THEM ON PT'S STATUS. RIGHT GROIN DRESSING C/D/I. NO S/S OF HEMATOMA NOTED. VSS. PT TOLERATING SIPS OF WATER AND COLA. DENIES PAIN AND DENIES NAUSEA.
--- NOTE | 2018-09-15 12:55 | NUR ---
PT RESTING COMFORTABLY. SUPINE POSITION. RIGHT GROIN DRESSING C/D/I. NO S/S OF HEMATOMA NOTED. VSS. FAMILY AT BEDSIDE. NO NEEDS AT THIS TIME. DENIES NAUSEA OR PAIN.
--- NOTE | 2018-09-15 13:45 | NUR ---
RIGHT GROIN DRESSING C/D/I. NO S/S OF HEMATOMA NOTED. RIGHT PEDAL PULSE PRESENT. VSS. CALL LIGHT WITHIN REACH. NO OTHER NEEDS AT THIS TIME.
--- NOTE | 2018-09-15 14:30 | NUR ---
RIGHT GROIN DRESSING C/D/I. NO S/S OF HEMATOMA NOTED. PT'S HEAD OF BED INC TO 30 DEGREES. TOLERATED WELL. PT SET UP WITH SANDWICH TRAY AND DRINK. DENIES PAIN OR NAUSEA AT THIS TIME. VSS.
--- NOTE | 2018-09-15 14:56 | NUR ---
LEFT ARM PIV D/C'D WITH CATH TIP INTACT. PT TOLERATED WELL. INSTRUCTED TO GET UP AND DRESSED AT THIS TIME. VSS. RIGHT GROIN DRESSING C/D/I. NO S/S OF HEMATOMA.
--- NOTE | 2018-09-15 15:13 | OP ---
PATIENT NAME: BLAIR ARVIZU MEDICAL RECORD: [id number] :49 LOCATION:D.CAT ADMISSION DATE: SURGEON: RAKESH CARPENTER MD DATE OF OPERATION: 09/15/2018 DATE OF SERVICE: 09/15/2018 PROCEDURES: 1. PTCA stent of LAD. 2. PTCA stent of left circumflex. 3. PTCA of ramus intermedius. 4. Left heart catheterization. 5. Selective coronary angiography. 6. Left ventriculogram. INDICATION: Angina and coronary artery disease. PROCEDURE IN DETAIL: After informed consent was obtained and after a detailed description of the risks, benefits as well as alternative therapies, the patient elected to proceed with angiogram and angioplasty. The right femoral area was prepped and draped in normal sterile fashion. Right femoral artery was cannulated via modified Seldinger technique with placement of 6-Hebrew sheath. All catheters exchanged through this sheath. FINDINGS: Left ventriculogram was performed in standard 30-degree CHEATHAM view, reveals ejection fraction preserved at 50%. SELECTIVE CORONARY ANGIOGRAPHY: 1. Left main has no significant angiographic disease. 2. Left anterior descending has 99% stenosis. This is in-stent restenosis proximally. 3. Left circumflex has 90% stenosis proximally. 4. Right coronary has moderate irregularities, but no flow-limiting stenosis. PTCA STENT OF THE LEFT CIRCUMFLEX AND LAD: The left circumflex was addressed with a 3.0 x 8 mm Rousseau, the LAD with a 3.5 x 18 mm Rousseau. This caused plaque shift into the ramus intermedius. This was now 90+ percent stenosis, addressed with a 2.0 balloon. Result was 0% residual throughout. OVERALL IMPRESSION: Successful percutaneous transluminal coronary angioplasty stent of the left circumflex and left anterior descending going from 90-99% initial stenosis to 0% residual. TRANSINT:[id number] Voice Confirmation ID: [id number] DOCUMENT ID: [id number] RAKESH CARPENTER MD at 1513 CC: [id number] DICTATION DATE: 09/15/18 1126 PRINTER ASSISTANT: 09/15/[address] [facility] [address] [place] [address]
--- NOTE | 2018-09-15 15:20 | NUR ---
DISCUSSED DISCHARGE INSTRUCTIONS WITH PT AND PT'S FAMILY. THEY VOICED UNDERSTANDING.
--- NOTE | 2018-09-15 15:30 | NUR ---
PT TAKEN OUT TO VEHICLE BY WHEELCHAIR. STOPPED BY RESTROOM AND VOIDED WITHOUT DIFFICULTY. PT HAS ALL BELONGINGS IN HAND. INCLUDING BILATERAL HEARING AIDS AND GLASSES. ALL PAPERWORK IN HAND.
== END 2018-09-15 15:30 | disposition home or self-care (01) ==
LOC: D.CATH 08:44
PROVIDERS: ATTEND Internal Medicine Interventional Cardiology
DX: I25.119 Atherosclerotic heart disease of native coronary artery with unspecified angina pectoris (principal); T82.855A Stenosis of coronary artery stent, initial encounter; Z01.812 Encounter for preprocedural laboratory examination
CPT/HCPCS: 93458; C9600 ×2; 92920

== ENCOUNTER 2019-12-22 13:56 | Inpatient (IN) | payer MEDICARE, OTHER ==
[~2019-12-22] VITALS: Ht 172.7 cm; Wt 88.0 kg
--- NOTE | ~2019-12-22 | HEMODYNAMI ---
PATIENT:BLAIR ARVIZU MEDICAL RECORD: [id number] : 49 LOCATION:[facility] D.2301 ADMISSION DATE: 12/22/19 Generatedon:12/23/20199:33 Patient name: BLAIR ARVIZU Patient #: [id number] SSN: : 1945 Date of study: 12/23/2019 Page: Of Hemodynamic Procedure Report Patient Data Patient Demographics Procedure consent was obtained First Name: BLAIR Gender: Male Last Name: LUH : 1945 [facility] Initial: NOLBERTO Age: 73 year(s) Patient #: [id number] Race: Unknown Additional ID: [id number] Contact details [address]: [address] [place] [address] State: [place] City: [place] Zip code: [address] Past Medical History Allergies Allergen Reaction Date Comments Reported Other allergy 07/04/2017 TETANUS VACCINES, TOXOID Other allergy 09/15/2018 TETANUS Other allergy 12/23/2019 SULFA, TETANUS AND TOXOID Admission Admission Data Admission Date: 12/22/2019 Admission Time: 14:28 Room #: 2301 Procedure Procedure Types Cath Procedure Diagnostic Procedure C [facility] w/Coronaries Sedation Charges Moderate Sedation up to 15 minutes Procedure Description Procedure Date Procedure Date: 12/23/2019 Procedure Start Time: 9:16 Procedure End Time: 9:30 Procedure Staff Name Function Lashae Pandya MD Performing Physician Marlene Quinonez RT Monitor Kelli Amaral RT Scrub Romy Armando RN Nurse Procedure Data Cath Procedure Fluoroscopy Diagnostic fluoroscopy Total fluoroscopy Time: 1.5 time: 1.5 min min Diagnostic fluoroscopy Total fluoroscopy dose: 195 dose: 195 mGy mGy Contrast Material Contrast Material Type Amount (ml) Isovue 300 26 Entry Location Entry Primary Successful Side Size Upsize Upsize Entry Closure Wall ccessful Closure Location (Fr) 1 (Fr) 2 (Fr) Remarks Device Remarks Radial Right 6 Fr Mechanical artery Short Compression Estimated blood loss: 5 ml Diagnostic catheters Device Type Used For End Catheter Placement DIAGNOSTIC [place] 110cm 5 Multi-vessel Fr catheter ([id number]) Angiography Procedure Complications No complications Procedure Medications Medication Administration Route Dosage 0.9% NaCl I.V. 100 ml/hr Oxygen etCO2 Nasal cannula 2 l/min Lidocaine 2% added to field 20 Heparin Flush Bag added to field 2 bags (1000units/500ml NS) Radial Cocktail added to field 1 syringe (Verapamil 2mg/Nitro 400mcg/Heparin 1500units) Versed 1 mg Hemodynamics Rest Heart Rate: 64 (bpm) Pressure Samples Time Site Value (mmHg) Purpose Heart Use Rate(bpm) 9:21 LV 100/49,8 Snapshot 90 9:22 LV 77/16,35 EDP 55 Snapshots Pre Cath Intra NCS Post Cath Vital Signs Time Heart Resp SPO2 etCO2 NIBP (mmHg) Rhythm Pain Sedation Rate (ipm) (%) (mmHg) Status Level (bpm) 8:57:46 61 11 98 24 140/72(121) NSR 0 (11) 10(A) , No pain 9:02:08 62 13 98 24.7 133/67(106) NSR 0 (11) 10(A) , No pain 9:06:26 62 15 99 12.7 133/68(108) NSR 0 (11) 10(A) , No pain 9:10:49 64 12 97 11.2 129/64(104) NSR 0 (11) 10(A) , No pain 9:15:08 62 16 98 14.2 128/65(100) NSR 0 (11) 10(A) , No pain 9:19:35 67 17 97 24 132/56(96) NSR 0 (11) 10(A) , No pain 9:23:53 68 12 98 22.5 109/64(85) NSR 0 (11) 10(A) , No pain 9:28:07 67 10 97 19.5 118/63(100) NSR 0 (11) 10(A) , No pain Medications Time Medication Route Dose Verified Delivered Reason Notes Ef fectiveness by by 8:56:43 0.9% NaCl I.V. 100 Norred Romy used for ml/hr Mumtaz Armando cigarette tester 8:56:50 Oxygen etCO2 2 l/min Norred Romy used for Nasal Mumtaz Armando procedure cannula RN 8:56:57 Lidocaine 2% added 20ml Norred Norred for local to vial Mumtaz Pandya MD anesthetic field 8:57:02 Heparin Flush added 2 bags Jessicared Jessicared used for Bag to Mumtaz Pandya MD procedure (1000units/500ml field NS) 8:57:09 Radial Cocktail added 1 Norred Norred used for (Verapamil to syringe Mumtaz Pandya MD procedure 2mg/Nitro field 400mcg/Heparin 1500units) 9:10:46 Versed 1 mg Jessicared Romy for Mumtaz Armando sedation cartographic aide Log Time Note 8:22:17 Informed consent obtained and on chart 8:23:55 Procedure Status Urgent Heart Cath (IP). 8:23:56 Time tracking: Call back (After hours or weekends) 8:24:01 Plan of Care:Hemodynamics will remain stable., Cardiac rhythm will remain stable., Comfort level will be maintained., Respiratory function will remain adequate., Patient/ family verbilizes understanding of procedure., Procedure tolerated without complication., Recovers from procedure without complications.. 8:40:48 Romy Armando RN sent for patient. Start room use. 8:50:05 H&P Date Dictated: 12/22/2019 Within 30 days and on chart., H&P Addendum completed by physician on day of procedure. (MUST COMPLETE FOR ALL OUTPATIENTS). 8:50:28 Patient allergic to Other allergySULFA, TETANUS AND TOXOID 8:51:19 Patient received from ICU to CCL 1 Alert and oriented. Tansferred to table in Supine position. 8:51:20 Warm blankets applied, and ev hugger turned on for patient comfort. 8:51:20 Correct patient and procedure confirmed by team. 8:51:21 ECG and BP/O2 sat monitors applied to patient. 8:56:33 Vital chart was started 8:56:43 0.9% NaCl 100 ml/hr I.V. was administered by Romy Armando RN; used for procedure; Verbal order read back and verified. 8:56:50 Oxygen 2 l/min etCO2 Nasal cannula was administered by Romy Armando RN; used for procedure; Verbal order read back and verified. 8:56:57 Lidocaine 2% 20ml vial added to field was administered by Lashae Pandya MD; for local anesthetic; Verbal order read back and verified. 8:57:02 Heparin Flush Bag (1000units/500ml NS) 2 bags added to field was administered by Lashae Pandya MD; used for procedure; Verbal order read back and verified. 8:57:09 Radial Cocktail (Verapamil 2mg/Nitro 400mcg/Heparin 1500units) 1 syringe added to field was administered by Lashae Pandya MD; used for procedure; Verbal order read back and verified. 9:00:02 Baseline sample Acquired. 9:00:08 Rhythm: sinus rhythm 9:00:10 Full Disclosure recording started 9:00:11 Pre-procedure instructions explained to patient. 9:00:11 Pre-op teaching completed and patient verbalized understanding. 9:00:14 Family unavailable. 9:00:15 Patient NPO since Midnight. 9:00:18 Is the patient allergic to Iodine/contrast media? No. 9:00:21 Was the patient premedicated? Yes 9:00:23 Is patient on blood thinner?No 9:00:26 Patient diabetic? Yes. 9:00:27 If diabetic: On Metformin? Yes 9:00:29 If on Metformin: Last Dose? 12/22/2019 9:00:33 Previous problem with sedation/anesthesia? No ? 9:00:36 Snore? No 9:00:37 Sleep apnea? No 9:00:38 Deviated septum? No 9:00:39 Opens mouth fully? Yes 9:00:40 Sticks out tongue? Yes 9:00:42 Airway obstruction? No ? 9:00:47 Dentures? Yes IN TIGHT 9:00:50 Pre procedure: right dorsailis pedis pulse 2+ Normal; easily identifiable; not easily obliterated 9:00:52 Pre procedure: left dorsailis pedis pulse 2+ Normal; easily identifiable; not easily obliterated 9:00:54 Patient pain scale 0/10 ?. 9:00:59 IV patent on arrival in left forearm with 0.9% NaCl at [facility] 9:01:02 Lab results completed and on chart. 9:07:51 Risk of Mortality: 0.1 9:07:54 Risk of blood transfusion: 0.3 9:07:57 Risk of NAKITA: 0.1 9:08:02 Right Radial & Right Groin area was prepped with chlora-prep and draped in sterile fashion 9:08:03 Alarms reviewed by RTiffany N. 9:08:04 Sharps counted by scrub and verified by Nelli 9:08:38 Physician arrived 9:08:38 --------ALL STOP TIME OUT------ 9:08:39 Final Timeout: patient, procedure, and site verified with staff and physician. All members of the team are in agreement. 9:08:41 Right Radial & Right Groin site verified by team. 9:08:46 Fire Safety Assessment: A--An alcohol-based skin anteseptic being used preoperatively., C--Open oxygen or nitrous oxide is being used., D--An ESU, laser, or fiber-optic light is being used. 9:08:51 Physical assessment completed. ASA score P 2 - A patient with mild systemic disease as per Lashae Pandya MD. 9:09:07 3a) 45-59 Moderately reduced kidney function. 9:10:46 Versed 1 mg was administered by Romy Armando RN; for sedation; Verbal order read back and verified. 9:15:51 Maximum allowable contrast dose (3.7 X eGFR X 0.75)117 ml. 9:15:54 Sedation plan: IV Moderate Sedation Medication:Versed, Fentanyl 9:15:58 Use device set Radial Dx or PCI 9:15:59 ACIST Syringe (59171) opened to sterile field. 9:16:00 Medline Cath Pack ([id number]) opened to sterile field. 9:16:00 Bag Decanter (2002S) opened to sterile field. 9:16:01 ACIST Hand Control (20517) opened to sterile field. 9:16:01 ACIST Manifold (68828) opened to sterile field. 9:16:02 Tegaderm 4 x 4 (1626W) opened to sterile field. 9:16:02 MBrace Wrist Support ([id number]) opened to sterile field. 9:16:05 SHEATH 6FR RAIN (7302170) opened to sterile field. 9:16:06 EMERALD Guide Wire (838-663) opened to sterile field. 9:16:11 Procedure started. 9:16:14 Local anesthetic to right radial artery with Lidocaine 2% by Lashae Pandya MD.INITIAL ACCESS ONLY 9:18:15 A 6 Fr Short sheath was inserted into the Right Radial artery 9:20:28 A DIAGNOSTIC [place] 110cm 5 Fr catheter ([id number]) was advanced over the wire and used for Multi-vessel Angiography. 9:21:01 Zero performed for pressure channel P1 9:21:12 Zero performed for pressure channel P1 9::38 Zero performed for pressure channel P1 9:21:59 LV hemodynamics recorded. 9:22:00 LV gram done using CHEATHAM 9:22:03 Injector settings: Ml/sec: 5, Volume: 15, 9:22:41 EF : 50 % 9:22:49 RCA angiography performed. 9::51 Injector settings: Ml/sec: 3, Volume: 6, 9:23:08 LCA angiography performed. 9:23:11 Injector settings: Ml/sec: 3, Volume: 6, 9:27:03 Catheter removed. 9:27:38 Sheath removed intact; hemostasis achieved with Mechanical Compression to the Right Radial artery. 9:27:45 Procedure ended.(Physican Out) 9:28:38 Fluoroscopy time 01.50 minutes. 9:28:43 Fluoroscopy dose: 195 mGy 9:28:43 Flurop Dose total: 195 9:28:50 Dose Area Product 03899 mGy/cm. 9:28:54 Contrast amount:Isovue 300 26ml. 9:28:56 Maximum allowable dose exceeded? No. 9:28:57 Sharps counted by scrub and verified by R.N. 9:28:58 Insertion/operative site no bleeding no hematoma. 9:29:08 Post right radial artery:stable 9:29:09 Post Procedure Pulses reassessed and unchanged 9:29:16 Post procedure rhythm: unchanged. 9:29:18 Estimated blood loss: 5 ml 9:29:20 Post procedure instruction explained to patient.Patient verbalizes understanding. 9:29:21 Patient needs reinforcement of post procedure teaching. 9:29:31 Procedure type changed to Cath procedure, Diagnostic procedure, LHC, [facility] w/Coronaries, Sedation Charges, Moderate Sedation up to 15 minutes 9:30:06 Eclectic band inflated with 12cc of air. 9:30:12 Procedure and supply charges have been captured, reviewed, submitted and are correct. 9:30:30 Procedure Complication : No complications 9:30:33 Vital chart was stopped 9:30:35 [facility] Findings: MVD- CABG consult 9:30:37 Operative report dictated upon procedure completion. 9:30:38 See physician's report for complete and final results. 9:30:42 Report given to ICU. 9:30:45 Patient transfered to ICU with Stretcher. 9:30:47 Procedure ended. 9:30:47 Full Disclosure recording stopped 9:30:51 End room use (Document Last) 9:31:56 End room use (Document Last) 9:32:20 End room use (Document Last) Device Usage Item Name Manufacture Quantity Catalog Hospital Part Current Minima l Lot# / Number Charge Number Stock Stock Serial# Code ACIST Acist 1 24995 232599 492945 [id number] 20 Syringe Medical (65494) Systems Inc Medline Medline 1 [id number] 481586 06233 290147 5 Cath Pack ([id number]) Bag Microtek 1 2001S 612089 55492 788622 5 Decanter Medical Inc. () ACIST Hand Acist 1 18701 974964 154904 219295 5 Control Medical (97294) Systems Inc ACIST Acist 1 35807 145289 648100 333015 5 Manifold Medical (66791) Systems Inc Tegaderm 4 3M 1 1626W 522467 825793 345616 5 x 4 (1626W) MBrace Advanced 1 140-0250-00 559049 34929 304691 5 Wrist Vascular Support Dynamics ([id number]) SHEATH 6FR Cardinal 1 [id number] 508033 8866475 987313 5 [facility] (5942505) EMERALD Cardinal 1 173-506 160491 387659 539751 5 Guide Wire [facility] (701-228) DIAGNOSTIC Terumo 1 40-9101 488592 647904 455291 5 [place] 110cm 5 Fr catheter (046672) Signature Audit [place] Stage Time Signature Unsigned Intra-Procedure 12/23/2019 Marlene Quinonez 9:31:56 AM RT(R) Intra-Procedure 12/23/2019 Romy Armando 9:32:20 AM RN Intra-Procedure 12/23/2019 Lashae Pandya MD 9:33:56 AM [facility] [address] [place] [address]
[~2019-12-22 13:56] MED LIST changes: +GLUCOPHAGE500 MG PO
[2019-12-22 14:34] LABS: BASOPHILS 0.4 % (0-2); EOSINOPHILS 2.9 % (0-7); HEMATOCRIT 41.3 % (42.0-54.0); HEMOGLOBIN 13.7 g/dL (13.5-17.5); IMMATURE GRANULOCYTES 0.2 % (0-5); LYMPHOCYTES 17.2 % (15-50); MCH 30.2 pg (26.0-34.0); MCHC 33.2 g/dL (31.0-37.0); MCV 91.2 fL (80.0-100.0); MEAN PLATELET VOLUME 8.5 fL (7.4-10.4); MONOCYTES 9.8 % (2-11); NEUTROPHILS 69.5 % (40-80); PLATELET COUNT 276 10x3/uL (130-400); RBC 4.53 10x6/uL (4.20-6.10); RDW 13.9 % (11.5-14.5); WBC 11.3 10x3/uL (4.8-10.8)
[2019-12-22 14:38] LABS: CALC OSMOLALITY 279 mosm/kg (275-300); CALCIUM 9.1 mg/dL (8.5-10.1); CARBON DIOXIDE 24.8 mmol/L (21.0-32.0); CHLORIDE - SERUM 105 mmol/L (98-107); CREATININE - SERUM 1.7 mg/dL (0.6-1.3); GLUCOSE 85 mg/dL (74-106); INR 0.99 (0.85-1.17); POTASSIUM - SERUM 4.6 mmol/L (3.5-5.1); PROTIME 13.1 SECONDS (11.6-15.0); SODIUM 140 mmol/L (136-145); UREA NITROGEN 19 mg/dL (7-18); eGFR NON AFRICAN AMERICAN 42 mL/min (90-120)
[2019-12-22 14:59] LABS: ALBUMIN 3.8 g/dL (3.4-5.0); ALKALINE PHOSPHATASE 103 U/L (30-120); ALT (SGPT) 21 U/L (10-68); BILIRUBIN - TOTAL 0.61 mg/dL (0.2-1.3); CKMB 6.9 U/L (0.0-3.6); CREATINE KINASE 198 UL (21-232); PROTEIN - SERUM 7.7 g/dL (6.4-8.2)
[2019-12-22 15:04] LABS: TROPONIN-I 0.791 ng/mL (0.000-0.060)
--- NOTE | 2019-12-22 15:10 | NUR ---
DR MOE AT PT BEDSIDE
--- NOTE | 2019-12-22 15:30 | NUR ---
DR ESTRADA AT PT BEDSIDE. VERBAL ORDER FOR 300 PLAVIX AND ORDER FOR CCU BED GIVEN.
[2019-12-22 15:40] VITALS: BP 119/49
--- NOTE | 2019-12-22 16:30 | NUR ---
PT SITTING UPRIGHT ON BED. NO S/S OF ACUTE DISTRESS NOTED. PT DENIES PAIN.
--- NOTE | 2019-12-22 17:23 | NUR ---
PT UPDATED ON PLAN OF CARE. NO S/S OF ACUTE DISTRESS NOTED. PT REMAINS PAIN FREE.
[2019-12-22] MEDS ORDERED: LOVASTATIN10 MG PO (18:58)
[2019-12-22 19:00] VITALS: BP 138/67; BMI 23.1
[2019-12-22 20:00] VITALS: BP 113/52
[2019-12-22 20:33] LABS: CREATINE KINASE 341 UL (21-232)
[2019-12-22 20:34] LABS: TROPONIN-I 24.703 ng/mL (0.000-0.060)
[2019-12-22 21:00] VITALS: BP 108/47
[2019-12-22 22:00] VITALS: BP 122/57
[2019-12-22 23:00] VITALS: BP 136/65
--- NOTE | 2019-12-22 23:06 | NUR ---
1854- PATIENT ARRIVED VIA ER STRETCHER. BREATHING ROOM AIR. DENIES ANY PAIN OR PRESSURE ANYWHERE. A/O X4. ABLE TO ANSWER QUESTIONS CORRECTLY. PIV TO LEFT HAND, SALINE LOCKED. 2014- STARTED IVF PER ORDERS. EKG DONE PER ORDERS, SHOWS SINUS BRADYCARDIA 2140- SPOKE WITH DR. ESTRADA CONCERNING CARDIA LABS. NEW ORDERS FOR LOVENOX GIVEN. PATIENT DENIES ANY CHEST PAIN OR PRESSURE. 2299- REASSESSMENT COMPLETED. LAYING IN BED. VSS. DENIES ANY NEEDS
[2019-12-23] VITALS (16 sets, daily range): BP systolic 110–143; BP diastolic 44–82
--- NOTE | 2019-12-23 01:02 | NUR ---
EYES CLOSED, VSS. NO CHANGES
--- NOTE | 2019-12-23 03:23 | NUR ---
REASSESSMENT COMPLETED. NO CHANGES. STILL DENIES PAIN. A/O X 4
[2019-12-23 03:49] LABS: BASOPHILS 0.3 % (0-2); EOSINOPHILS 3.8 % (0-7); HEMATOCRIT 37.3 % (42.0-54.0); HEMOGLOBIN 12.2 g/dL (13.5-17.5); IMMATURE GRANULOCYTES 0.1 % (0-5); LYMPHOCYTES 14.1 % (15-50); MCH 29.9 pg (26.0-34.0); MCHC 32.7 g/dL (31.0-37.0); MCV 91.4 fL (80.0-100.0); MEAN PLATELET VOLUME 8.4 fL (7.4-10.4); MONOCYTES 9.6 % (2-11); NEUTROPHILS 72.1 % (40-80); PLATELET COUNT 234 10x3/uL (130-400); RBC 4.08 10x6/uL (4.20-6.10); RDW 13.8 % (11.5-14.5)
[2019-12-23 03:51] LABS: WBC 7.9 10x3/uL (4.8-10.8)
[2019-12-23 04:20] LABS: ALBUMIN 2.9 g/dL (3.4-5.0); ALKALINE PHOSPHATASE 82 U/L (30-120); ALT (SGPT) 16 U/L (10-68); BILIRUBIN - TOTAL 0.55 mg/dL (0.2-1.3); CALC OSMOLALITY 283 mosm/kg (275-300); CALCIUM 8.2 mg/dL (8.5-10.1); CARBON DIOXIDE 26.1 mmol/L (21.0-32.0); CHLORIDE - SERUM 109 mmol/L (98-107); CKMB 21.7 U/L (0.0-3.6); CREATINE KINASE 262 UL (21-232); CREATININE - SERUM 1.4 mg/dL (0.6-1.3); GLUCOSE 94 mg/dL (74-106); MAGNESIUM - SERUM 1.9 mg/dL (1.8-2.4); PHOSPHOROUS 3.2 mg/dL (2.5-4.9); POTASSIUM - SERUM 3.9 mmol/L (3.5-5.1); PROTEIN - SERUM 6.1 g/dL (6.4-8.2); SODIUM 141 mmol/L (136-145); TROPONIN-I 15.732 ng/mL (0.000-0.060); UREA NITROGEN 21 mg/dL (7-18); eGFR NON AFRICAN AMERICAN 53 mL/min (90-120)
--- NOTE | 2019-12-23 04:44 | NUR ---
EYES CLOSED, VSS. NO CHANGES
[2019-12-23 08:49] LABS: CKMB 15.5 U/L (0.0-3.6); CREATINE KINASE 219 UL (21-232)
--- NOTE | 2019-12-23 10:19 | NUR ---
0700 REPORT REVIEVED AND CARE ASSUMED OF THE PATIENT.. SEE FLOW SHEET FOR SHIFT ASSESMENT.. 0800 PREOP MEDS GIVEN FOR CAMPAIGN ADVISOR.. 0850 TRANSPORTED TO CAMPAIGN ADVISOR VIA BED... 0940 CAMPAIGN ADVISOR CALLED WITH REPORT.. 0945 BACK IN ROOM TR BAND IN PLACE WITH WRIST PROTECTOR.. SYRINGE IN HAND 0950 DR ESTRADA IN TO SPEAK WITH PATIENT.. 1000 BREAKFAST SERVED TO PATIENT..
--- NOTE | 2019-12-23 11:10 | NUR ---
1045 DR MOE IN TO SEE PATIENT.. 1055 HERE LET IN TO SEE PATIENT AND SPEAK WITH DR MOE.. 1110 REMAINS AT BEDSIDE .. CV ICU CALLED AND MESSAGE LEFT FOR DR CALZADA RE CONSULT..
--- NOTE | 2019-12-23 15:04 | NUR ---
1200 FSBS DONE WITH INSULIN COVER SEE AUG 1214 DIET SERVED REMAINS AT BEDSIDE WAITING FOR DR CALZADA 1230 DR CALZADA IN TO SEE PATIENT 1245 DR CALZADA TALKING WITH PT AND .. 1300 OK TO TRANSFER TO THE FLOOR PER DR CALZADA.. 1400 DR MOE INFORMED OF OK TO TRANSFER NO OTHER ORDERS FROM HIM AT THIS TIME.. 1500 VOIDED IN URINAL WIHTOUT DIFFICULTY..
--- NOTE | 2019-12-23 17:26 | NUR ---
1630 FSBS DONE WITHOUT INSULIN COVER 1700 DINNER SERVED AND PT IS FEFEDING SELF.. REMAINDER OF AIR REMOVED FROM TR BAND..
--- NOTE | 2019-12-23 18:31 | NUR ---
1830 TRANSFERED TO ROOM 2118 VIA WHEELCHAIR
--- NOTE | 2019-12-23 18:35 | NUR ---
TRANSFER FROM ICU. CALL LIGHT IN REACH. WILL MONITOR.
--- NOTE | 2019-12-23 20:00 | NUR ---
INITIAL ROUNDS AND ASSESSMENT COMPLETED. PT RESTING IN BED. ALERT/ORIENTED. SR PER TELEMETRY. IVF SALINE LOCKED AT PT REQUEST. RIGHT WRIST DRESSING C/D/I. NO BRUISING OR SWELLING. CPOC AND PT TEACHING.
[2019-12-24] VITALS: BP 118/54
--- NOTE | 2019-12-24 00:59 | NUR ---
ALL BEDTIME MEDS GIVEN. IV LOVENOX TO ABDOMEN. NO NEEDS VOICED. SR/71 PER TELEMETRY. CALL LIGHT IN REACH. CPOC.
[2019-12-24 04:00] VITALS: BP 113/57
[2019-12-24 06:54] LABS: BASOPHILS 0.3 % (0-2); EOSINOPHILS 5.3 % (0-7); HEMATOCRIT 38.2 % (42.0-54.0); HEMOGLOBIN 12.8 g/dL (13.5-17.5); IMMATURE GRANULOCYTES 0.3 % (0-5); LYMPHOCYTES 22.2 % (15-50); MCH 30.2 pg (26.0-34.0); MCHC 33.5 g/dL (31.0-37.0); MCV 90.1 fL (80.0-100.0); MEAN PLATELET VOLUME 8.8 fL (7.4-10.4); MONOCYTES 9.6 % (2-11); NEUTROPHILS 62.3 % (40-80); PLATELET COUNT 217 10x3/uL (130-400); RBC 4.24 10x6/uL (4.20-6.10); RDW 13.9 % (11.5-14.5); WBC 7.7 10x3/uL (4.8-10.8)
--- NOTE | 2019-12-24 07:15 | NUR ---
RECEIVED PT IN BED AAOX4 RESP UNLABORED SKIN W/D COLOR WNL NAD NOTED
[2019-12-24 07:19] LABS: ANION GAP 13.4 mmol/L (8-16); CALCIUM 8.5 mg/dL (8.5-10.1); CARBON DIOXIDE 23.3 mmol/L (21.0-32.0); CREATININE - SERUM 1.1 mg/dL (0.6-1.3); MAGNESIUM - SERUM 1.9 mg/dL (1.8-2.4); POTASSIUM - SERUM 3.7 mmol/L (3.5-5.1)
[2019-12-24 08:10] VITALS: BP 104/62
[2019-12-24 11:24] VITALS: BP 114/55
[2019-12-24 17:41] VITALS: BP 132/59
[2019-12-24 21:47] VITALS: BP 137/63
[2019-12-25 04:00] VITALS: BP 110/50
[2019-12-25 05:30] LABS: BASOPHILS 0.4 % (0-2); EOSINOPHILS 5.3 % (0-7); HEMATOCRIT 39.7 % (42.0-54.0); HEMOGLOBIN 13.2 g/dL (13.5-17.5); IMMATURE GRANULOCYTES 0.1 % (0-5); LYMPHOCYTES 26.9 % (15-50); MCH 30.1 pg (26.0-34.0); MCHC 33.2 g/dL (31.0-37.0); MCV 90.6 fL (80.0-100.0); MEAN PLATELET VOLUME 8.6 fL (7.4-10.4); MONOCYTES 11.3 % (2-11); RBC 4.38 10x6/uL (4.20-6.10); RDW 13.8 % (11.5-14.5); WBC 7.6 10x3/uL (4.8-10.8)
[2019-12-25 05:43] LABS: ANION GAP 13.4 mmol/L (8-16); CARBON DIOXIDE 23.6 mmol/L (21.0-32.0); CREATININE - SERUM 1.2 mg/dL (0.6-1.3); PHOSPHOROUS 3.4 mg/dL (2.5-4.9)
[2019-12-25 06:05] LABS: PLATELET COUNT 266 10x3/uL (130-400)
[2019-12-25 08:49] VITALS: BP 124/62
[2019-12-25 08:51] LABS: PLT FUNCT.(P2Y12) PLAVIX 95 PRU (194-418)
[2019-12-25 11:36] VITALS: Ht 172.7 cm; Wt 88.0 kg
[2019-12-25 12:14] VITALS: BP 112/56
[2019-12-25 15:23] VITALS: BP 123/69
[2019-12-25 16:59] LABS: BASOPHILS 0.2 % (0-2); EOSINOPHILS 3.9 % (0-7); HEMATOCRIT 44.6 % (42.0-54.0); HEMOGLOBIN 14.5 g/dL (13.5-17.5); IMMATURE GRANULOCYTES 0.1 % (0-5); LYMPHOCYTES 24.5 % (15-50); MCH 30.1 pg (26.0-34.0); MCHC 32.5 g/dL (31.0-37.0); MCV 92.5 fL (80.0-100.0); MEAN PLATELET VOLUME 8.6 fL (7.4-10.4); MONOCYTES 10.8 % (2-11); NEUTROPHILS 60.5 % (40-80); PLATELET COUNT 293 10x3/uL (130-400); RBC 4.82 10x6/uL (4.20-6.10); RDW 13.9 % (11.5-14.5); WBC 8.7 10x3/uL (4.8-10.8)
[2019-12-25 17:03] LABS: APTT 33.6 SECONDS (22.8-39.4); INR 0.99 (0.85-1.17); PROTIME 13.1 SECONDS (11.6-15.0)
[2019-12-25 17:17] LABS: ALBUMIN 3.6 g/dL (3.4-5.0); ANION GAP 12.8 mmol/L (8-16); BILIRUBIN - TOTAL 0.49 mg/dL (0.2-1.3); CALCIUM 9.1 mg/dL (8.5-10.1); CARBON DIOXIDE 25.5 mmol/L (21.0-32.0); CREATININE - SERUM 1.4 mg/dL (0.6-1.3); PHOSPHOROUS 3.8 mg/dL (2.5-4.9); POTASSIUM - SERUM 4.3 mmol/L (3.5-5.1); PROTEIN - SERUM 7.9 g/dL (6.4-8.2); T4 THYROXIN - FREE 1.08 ng/dL (0.76-1.46); THYROID STIMULATING HORMONE 5.12 uIU/mL (0.36-3.74); URIC ACID 6.5 mg/dL (2.6-7.2)
[2019-12-25 17:56] LABS: BILIRUBIN NEGATIVE (NEGATIVE); KETONE NEGATIVE (NEGATIVE); NITRITE NEGATIVE (NEGATIVE); UROBILINOGEN NORMAL (NORMAL)
--- NOTE | 2019-12-25 19:30 | NUR ---
PATIENT IS RESTING COMFORTABLY IN BED. HE IS ALERT AND ORIENTED. HE WAS COMPLAINING OF HIS RIGHT WRIST CATHERIZATION SITE BLEEDING. I APPLIED 2X2 GAUZE AND TAPE. WE WILL MONITOR HIS WRIST SITE FOR BLEEDING.
[2019-12-26 01:18] VITALS: BP 113/53
--- NOTE | 2019-12-26 04:43 | NUR ---
PATIENT IS SLEEPING. HIS WRIST SITE HAS STOPPED BLEEDING. HE HAS NO OTHER COMPLAINTS AT THIS TIME.
[2019-12-26 06:52] VITALS: BP 114/49
[2019-12-26 06:52] LABS: BASOPHILS 0.3 % (0-2); EOSINOPHILS 4.1 % (0-7); HEMATOCRIT 39.6 % (42.0-54.0); HEMOGLOBIN 13.2 g/dL (13.5-17.5); IMMATURE GRANULOCYTES 0.1 % (0-5); LYMPHOCYTES 23.2 % (15-50); MCH 30.5 pg (26.0-34.0); MCHC 33.3 g/dL (31.0-37.0); MCV 91.5 fL (80.0-100.0); MEAN PLATELET VOLUME 8.6 fL (7.4-10.4); MONOCYTES 8.2 % (2-11); NEUTROPHILS 64.1 % (40-80); PLATELET COUNT 279 10x3/uL (130-400); RBC 4.33 10x6/uL (4.20-6.10); WBC 7.3 10x3/uL (4.8-10.8)
[2019-12-26 07:00] LABS: ANION GAP 15.8 mmol/L (8-16); CALCIUM 8.8 mg/dL (8.5-10.1); CARBON DIOXIDE 21.3 mmol/L (21.0-32.0); CREATININE - SERUM 1.2 mg/dL (0.6-1.3); PHOSPHOROUS 3.1 mg/dL (2.5-4.9); POTASSIUM - SERUM 4.1 mmol/L (3.5-5.1)
[2019-12-26 08:00] VITALS: BP 132/51
[2019-12-26 11:00] VITALS: BP 133/53
--- NOTE | 2019-12-26 14:49 | EC ---
PATIENT:BLAIR ARVIZU DATE OF SERVICE: 12/22/19 SEX: M MEDICAL RECORD: [id number] DATE OF : [birth year] LOCATION:D.M2 D.211 AGE OF PATIENT: 73 ADMISSION DATE: 12/22/19 REFERRING PHYSICIAN: INTERPRETING PHYSICIAN: RAYMOND ESTRADA MD ECHOCARDIOGRAM REPORT ECHO CHARGES 4 ECHO COMPLETE Date: 12/23/19 CLINICAL DIAGNOSIS: CP ECHOCARDIOGRAPHIC MEASUREMENTS (adult normal given) AC root (d.<3.7cm) 2.8 cm LV Septum d (<1.2 cm> 0.8 cm Valve Excursion 1.2 cm LV Septum (systole) 0.9 cm Left Atria (s.<4.0cm> 3.1 cm LVPW d(<1.2cm) 0.9 cm RV (d.<2.3cm) 3.5 cm LVPW (sytole) 1.3 cm LV diastole(<5.6CM) 5.7 cm MV E-F(>70mm/sec) cm LV systole 4.8 cm LVOT Diameter 1.3 cm MV exc.(>10mm) cm Est.ejection fraction (50-75%) % DOPPLER: LVIT cm/sec A 77 cm/sec E 67 cm/sec LA cm/sec RVSP 20.7 mmHg LVOT 92 cm/sec AOP1/2T m/s Asc. Ao 146 cm/sec RVOT 61 cm/sec RA cm/sec PA 95 cm/sec AV Gradient Peak 8.5 mmHg AV Mean 4.3 mmHg AV Area 0.9 cm MV Gradient Peak 3.6 mmHg MV Mean 1.8 mmHg MV Area cm COMMENTS: Bench Molder: [employer] [place] Therapeutic Case Manager: Jojo Estrada TAPE# PACS Pericardial Effusion N DATE OF SERVICE: PROCEDURE: Transthoracic echocardiogram. FINDINGS: 1. Left ventricle shows ejection fraction of 40% to 45% with mild inferior basilar hypokinesis. 2. Left atrium is normal. 3. Aortic valve is not well visualized, but appears to be normal. No evidence of significant elevations in velocities through it, appears to be normal. ECHOCARDIOGRAM REPORT [id number] BLAIR ARVIZU 4. Mitral valve has trace mitral regurgitation. 5. Tricuspid valve has trace tricuspid regurgitation. Right ventricular systolic pressure is normal. 6. Right ventricle is normal size, shape, structure, and function, not well visualized. Right atrium also is not well visualized, but otherwise grossly normal. 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 TRANSINT:[id number] Voice Confirmation ID: [id number] DOCUMENT ID: [id number] RAYMOND ESTRADA MD at 1449 CC: [id number] DICTATION DATE: 12/25/19 1059 SENIOR CATERING SALES MANAGER: 12/25/19 1137 ADM IN [place] [id number] [place] [id number]
[2019-12-26 15:00] VITALS: BP 115/57
[2019-12-26 20:00] VITALS: BP 137/62
[2019-12-27] VITALS (36 sets, daily range): BP systolic 94–123; BP diastolic 5–63
[2019-12-27 05:01] LABS: BASOPHILS 0.2 % (0-2); EOSINOPHILS 3.6 % (0-7); HEMATOCRIT 41.5 % (42.0-54.0); HEMOGLOBIN 13.6 g/dL (13.5-17.5); IMMATURE GRANULOCYTES 0.1 % (0-5); MCHC 32.8 g/dL (31.0-37.0); MCV 91.6 fL (80.0-100.0); MEAN PLATELET VOLUME 8.6 fL (7.4-10.4); MONOCYTES 9.3 % (2-11); NEUTROPHILS 63.8 % (40-80); PLATELET COUNT 296 10x3/uL (130-400); RBC 4.53 10x6/uL (4.20-6.10); RDW 13.9 % (11.5-14.5); WBC 9.1 10x3/uL (4.8-10.8)
[2019-12-27 05:53] LABS: ANION GAP 12.8 mmol/L (8-16); CALCIUM 9.1 mg/dL (8.5-10.1); CARBON DIOXIDE 24.7 mmol/L (21.0-32.0); PHOSPHOROUS 3.2 mg/dL (2.5-4.9); POTASSIUM - SERUM 3.5 mmol/L (3.5-5.1)
[2019-12-27 06:06] LABS: CREATININE - SERUM 1.6 mg/dL (0.6-1.3)
[2019-12-27 13:41] LABS: INR 1.48 (0.85-1.17); PROTIME 17.8 SECONDS (11.6-15.0)
--- NOTE | 2019-12-27 14:45 | NUR ---
PT ARRIVED IN THE UNIT. PT HOOKED UP TO ICU MONITORS. PT SEDATED AND ON THE VENTILATOR. PT ETT SIZE 7.0 [address] CALZADA AT THE BEDSIDE AND ADJUSTING THE SWAN-RACHANA. SWAN-RACHANA TO THE RIGHT IJ ABOUT 49 CM. LOCKED. MIDSTERNAL DRESSING C/D/I. SUBSTERNAL DRESSING C/D/I. CT X3 NOTED. CT LABLED A IS A SINGLE TUBE AND CT P IS 2 CT'S Y'D INTO A SINGLE TUBE. CT'S CONNECTED TO 20 CM OF H2O SUCTION WITH NO AIR LEAK NOTED. LEFT RADHA DRAIN NOTED AND COMPRESSED. BLOODY DRAINAGE NOTED IN ALL TUBES. IABP NOTED TO THE RIGHT GROIN. ON EKG 1:1 RATIO. BILATERAL FEET COOL TO THE TOUCH. RIGHT DP AND PT PULSES DOPPERABLE. LLE UNABLE TO DOPPER. PER DR CALZADA, REMOVE COBAN AND WARM THE EXTRIMEITY. AFTER ABOUT 30 MINS, PULSES DOPPERABLE WITH NO ISSUES. PER DR CALZADA, KEEP THE IABP MEAN 70-80. KEN IS GOING TO INACCURATE. DR CALZADA AWARE THAT SQI ON THE VIGILANCE 2 MONITOR IS AT A 4. WILL CONT 1:1 MONITORING.
--- NOTE | 2019-12-27 15:30 | NUR ---
PER DR CALZADA, TURN DOBUTAMINE TO 3MCG/KG/MIN. HE STATED TO TURN OFF IF THE PATIENT BECOMES TACHYCARDIC. ABOUT 5 MINUTES OF THE IFUSION, THE PATIENT BECAME TACHYCARDIC RATE 140, DOBUTAMINE TURNED OFF AND DR CALZADA NOFIFIED. PT HEART RATE SLOWED TO NSR RATE 86.
--- NOTE | 2019-12-27 16:00 | NUR ---
DR CALZADA STATED TO USE 2MCG/KG/MIN OF DOBUTAMINE AND IF PT BECAME TACHYCARDIC TO DECREASE OR TURN OFF. PT BECAME TACHYCARDIC RATE 105 AND DOBUTAMINE DECREASED TO 1MCG/KG/MIN. DR CALZADA NOTIFIED AND STATED TO KEEP DOBUTAMINE AT 1MCG/KG/MIN
[2019-12-27 16:29] LABS: APTT 30.8 SECONDS (22.8-39.4); INR 1.21 (0.85-1.17); PROTIME 15.2 SECONDS (11.6-15.0)
--- NOTE | 2019-12-27 18:08 | NUR ---
DR JONAS AT THE PTS BEDSIDE. SEDATE WITH PROPOFOL. MAY SWITCH OVER TO FENTANYL IF PATIENT BECOMES HYPOTENSIVE.
--- NOTE | 2019-12-27 19:30 | NUR ---
PT SEDATED, OPENS EYES AT TIMES, ETT PATENT TO VENT, LUNGS CLEAR, RIGHT IJ CVL INTACT WITH MULTI IVF'S INFUSING AND SWAN RACHANA LINE IN PLACE TO MONITOR, MIDSTERNAL INCISION WITH DRSG CDI, SUBSTERNAL DRSG INTACT WITH CHEST TUBES X2 AND RADHA DRAIN WITH BLOODY DRAINAGE, LEPE PATENT TO BSD, DRSG INTACT TO RIGHT GROIN WITH IABP LINE INTACT TO BALLOON PUMP, RIGHT RADIAL A-LINE INTACT AND ZEROED, LEFT RADIAL PULSE PALPABLE, PEDAL PULSES AUDIBLE WITH DOPPLER, WILL CONT TO MONITOR
--- NOTE | 2019-12-27 23:00 | NUR ---
PT OPENS EYES, C/O PAIN, GIVEN MORPHINE FOR PAIN, REMAINS SEDATED, VITALS STABLE
[2019-12-28] VITALS (97 sets, daily range): BP systolic 93–157; BP diastolic 33–68
--- NOTE | 2019-12-28 01:30 | NUR ---
PT C/O PAIN, GIVEN MORPHINE 2MG IVP, VITALS STABLE
--- NOTE | 2019-12-28 03:15 | NUR ---
XRAY AT BEDSIDE, PT TOLERATED WELL, REMAINS SEDATED, WILL CONT TO MONITOR
--- NOTE | 2019-12-28 05:30 | NUR ---
pt arouses to verbal, remains sedated on vent, able to make needs known,will cont to monitor
[2019-12-28 05:58] LABS: BASOPHILS 0.1 % (0-2); EOSINOPHILS 0 % (0-7); IMMATURE GRANULOCYTES 0.2 % (0-5); LYMPHOCYTES 8.6 % (15-50); MCH 29.7 pg (26.0-34.0); MCHC 32.6 g/dL (31.0-37.0); MCV 91.3 fL (80.0-100.0); MEAN PLATELET VOLUME 9.2 fL (7.4-10.4); MONOCYTES 9.6 % (2-11); NEUTROPHILS 81.5 % (40-80); PLATELET COUNT 179 10x3/uL (130-400); RDW 15.2 % (11.5-14.5)
[2019-12-28 06:13] LABS: HEMATOCRIT 31.3 % (42.0-54.0); HEMOGLOBIN 10.2 g/dL (13.5-17.5); RBC 3.43 10x6/uL (4.20-6.10); WBC 11.4 10x3/uL (4.8-10.8)
[2019-12-28 06:21] LABS: ALBUMIN 2.5 g/dL (3.4-5.0); ANION GAP 11.9 mmol/L (8-16); BILIRUBIN - TOTAL 0.57 mg/dL (0.2-1.3); CALCIUM 7.7 mg/dL (8.5-10.1); CARBON DIOXIDE 25.1 mmol/L (21.0-32.0); CREATININE - SERUM 1.5 mg/dL (0.6-1.3); MAGNESIUM - SERUM 2.1 mg/dL (1.8-2.4); PHOSPHOROUS 3.9 mg/dL (2.5-4.9); PROTEIN - SERUM 5.1 g/dL (6.4-8.2)
--- NOTE | 2019-12-28 09:31 | OP ---
PATIENT NAME: BLAIR ARVIZU MEDICAL RECORD: [id number] :47 LOCATION:D.[facility] [place] D.CV02 ADMISSION DATE:12/22/19 SURGEON: KORY CALZADA MD DATE OF OPERATION: 12/27/2019 SURGEON: Kory Calzada MD PROCEDURE PERFORMED: 1. Coronary artery bypass graft times 3 (left internal mammary to LAD, reverse saphenous vein graft from aorta to obtuse marginal and aorta posterior descending artery). 2. Endoscopic vein harvest. 3. Percutaneous insertion right femoral intraaortic balloon pump. PREOPERATIVE DIAGNOSIS: Myocardial infarction, ischemic cardiomyopathy, coronary artery disease. POSTOPERATIVE DIAGNOSIS: Myocardial infarction, ischemic cardiomyopathy, coronary artery disease. ANESTHESIA: General endotracheal anesthesia. BLOOD LOSS: Total cardiopulmonary bypass with Cell Saver retransfusion. Two pack red blood cells, 2 platelets, and 2 FFP. SPECIMENS: None. COMPLICATIONS: Low cardiac output requiring intraaortic balloon pump. CONDITION: Critical. DISPOSITION: CV ICU. OPERATIVE FINDINGS: 1. Good quality greater saphenous vein. 2. Good quality left internal mammary artery. The LAD was 2.0 mm. 3. Obtuse marginal 2.0 mm. High OM was small and not grafted. 4. Posterior descending artery 2.0 mm with severe disease, split plaque at distal anastomosis. 5. Evidence of previous right myocardial infarction, ejection fraction 30% with decreased septal and inferior contractility. 6. Hypotension, on separation from cardiopulmonary bypass required placement of intraaortic balloon pump. The patient had tachycardia when placed on dobutamine, required volume resuscitation of the right heart. 7. The patient had significant bullous disease of the left upper lobe continuing now sites of takedown of apical adhesions were without bleeding. OPERATIVE PROCEDURE: The patient with myocardial infarction and critical ostial circ after previous percutaneous stenting of the coronary arteries. DESCRIPTION OF PROCEDURE: The patient was brought to the operating suite. General anesthesia was obtained, the patient prepped and draped. Greater saphenous vein harvested endoscopically to right lower extremity. Side branches were divided with electrocautery. The vessel was ligated proximally and distally, removed. Side branches were tied or oversewn. Leg was later closed OPERATIVE REPORT [id number] BLAIR ARVIZU in 2 layers after thorough irrigation. Median sternotomy incision was made. Subcutaneous tissue was divided by electrocautery. The sternum was divided with a saw. The left hemisternum was elevated. Left pleural cavity was entered. Left internal mammary and vein were taken down as a pedicle graft. Sternal retractor was placed. Pericardium was opened. Heparin was given. Aorta was cannulated. Dual stage venous cannula was inserted. The internal mammary was clipped distally and made ready for anastomosis. The patient was cardiopulmonary bypass. Sites for distal anastomoses were selected. The patient was cooled. Crossclamp was placed. Cardioplegia given antegrade and this repeated at 15 to 20 minute intervals including down the completed vein grafts. Distal anastomosis was performed in standard technique. Proximal anastomosis with single cross-clamp technique. Aortic root was de-aired by removing the cross clamp, de-airing the root, tying the proximal anastomosis, deairing the vein graft restoring the flow. Proximal and distal anastomotic sites inspected for bleeding. A single 7-0 in the distal PDA and two 6-0 in the proximal PDA graft as well as 7-0 in the branch side on the graft to the obtuse marginal. Good Doppler signal in all grafts. The patient fully rewarmed, weaned from cardiopulmonary bypass and was stable. The patient was decannulated. The patient had hypotension. Transfused. Intraaortic balloon pump was placed percutaneously through the right femoral artery with percutaneous cannulation dilatation of the arteries, placement of the balloon pump, good augmented return and the catheter sutured into place. Protamine was given. Thorough irrigation was undertaken gradually appropriately. Hemostasis was assured. Sternum was closed with wires. Fascia was closed. Subcutaneous tissue was closed. Skin was closed. Dermabond was placed. Seligman-New catheter referred by anesthesia. The patient was taken to the ICU. TRANSINT:[id number] Voice Confirmation ID: [id number] DOCUMENT ID: [id number] KORY CALZADA MD at 0931 CC: DOLORES LEDBETTER and MARTÍNEZ OLIVEROS MD [id number] DICTATION DATE: 12/27/19 153 BURR SANDER: 12/27/192125 ADM IN [place] [id number] [place] [id number]
--- NOTE | 2019-12-28 10:53 | NUR ---
0700: REPORT REC'D. REC'D IN SUPINE POSITION. AROUSES EASILY TO VERBAL STIMULI AND FOLLOWS COMMANDS. SEE ASSESSMENT. 0737: DR. CALZADA HERE. NEW ORDERS REC'D. DOBUTAMINE INCREASED TO 3 MCG/KG/MIN AND 250CCNS BOLUS GIVEN. IABP CHANGED TO 1:[address] CALZADA. 0935: IABP PULLED BY DR. CALZADA. MANUAL PRESSURE HELD TO R GROIN UNTIL 1015. SITE DRESSED WITH 4X4 AND TEGADERM. SITE SOFT. NO SIGNS OF BLEEDING.
--- NOTE | 2019-12-28 11:25 | NUR ---
1120: DR. JONAS HERE. CONDITION UPDATE GIVEN. NO NEW ORDERS.
--- NOTE | 2019-12-28 11:26 | NUR ---
Nutrition Follow-up: POD 1 CABG. Intubated. Was eating well prior to surgery. Wt: 174.1# (12/27); 152# (12/21) Labs noted: Glu 160, Ca 7.7, Alb 2.5 Meds noted: Protonix, Diprivan, Humulin -If pt to remain intubated, rec initiate nutrition support within 24-48 hrs as medically feasible. -Monitor wt. -RD following.
--- NOTE | 2019-12-28 17:45 | NUR ---
1736: DR CALZADA NOTIFIED OF RUN OF V TACH AND A FIB RATE 150S. NEW ORDERS REC'D.
--- NOTE | 2019-12-28 19:40 | NUR ---
REPORT REC'D AND CARE ASSUMED, REC'D PT ON VENT VIA 8.0 ETT TAPED SECURELY @ 21CM LIPLINE, PT AWAKENS TO VERBAL STIMULI, FOLLOWING COMMANDS, JERRY REICH DRSG CDI, MANNIFOLD TO PROXIMAL INFUSION WITH PLASMALYTE @ 100CC/HR, AMIODARONE 0.5 MG/MIN, FENTANYL @ 50MCG/HR OR 1CC, DIPRIVAN @ 20MCG/KG/MIN, NS BOLUS INFUSING ORDERED, AND DOBUTAMINE INFUSING @ 2MCG/KG/MIN, MIDSTERNAL DRSG CDI, MEDIASTINAL CT'S X 2 TO 20CM H2O SUCTION, NO AIR LEAK NOTED, LEFT SUBSTERNAL RADHA DRAIN COMPRESSED WITH SANGUINOUS DRAINAGE, RIGHT RADIAL KEN WITH FLEXION BOARD IN USE, LEPE PATENT DRAINING CLEAR YELLOW URINE BILAT TEDS, LOWER EXT COLD TO TOUCH, TEMP 98.2, PP BY DOPPLER, BILATERAL SOFT WRIST RESTRAINTS INTACT, SR UP X 2, 1:1 NURSING IN USE
--- NOTE | 2019-12-28 20:15 | NUR ---
PT'S CALLED FOR UPDATE, SECURITY CODE VERIFIED AND QUESTIONS ANSWERED.
--- NOTE | 2019-12-28 21:00 | NUR ---
EVENING PO MEDS HELD, PT SEDATED ON THE VENT, NPO, REPOSITIONED FOR COMFORT, VSS
--- NOTE | 2019-12-28 23:00 | NUR ---
REASSESSMENT COMPLETED, PT REPOSITIONED IN BED, TOLERATED WELL, WILL CONT TO MONITOR CLOSELY FOR CHANGES, FSBS 139
[2019-12-29] VITALS (47 sets, daily range): BP systolic 98–146; BP diastolic 39–60
--- NOTE | 2019-12-29 01:30 | NUR ---
NO CHANGES IN STATUS AT THIS TIME
--- NOTE | 2019-12-29 03:15 | NUR ---
REASSESSMENT COMPLETED, PT INTERMITTENTLY RESTLESS, ORAL CARE PROVIDED AND LIP MOISTURIZER APPLIED, VSS.
--- NOTE | 2019-12-29 04:30 | NUR ---
CHG AND COMPLETE LINEN CHANGE PROVIDED, DRSG TO CT'S CHANGED, SITE PAINTED WITH BETADINE, BIOPATCHES APPLIED TO P/M WIRES, COVERED WITH 4X4'S AND LARGE TEGADERM PT TOLERATED WELL. 5
--- NOTE | 2019-12-29 05:00 | NUR ---
DURING LINEN CHANGE BREATH SOUNDS COMING AROUND ETT, RT CALLED TO BS, RADIOLOGY NOTIFIED OF NEED FOR STAT CXR.
--- NOTE | 2019-12-29 05:15 | NUR ---
DR. JONAS NOTIFIED OF PROBLEM, ORDER REC'D TO ADVANCE 5CM, RT JIM AT BS, ETT ADVANCED TO 24CM LIPLINE, RESP RATE 19, O2 SAT 88%, FIO2 INCREASED TO 75%, BP STABLE,
[2019-12-29 06:21] LABS: BASOPHILS 0.1 % (0-2); EOSINOPHILS 0.8 % (0-7); HEMATOCRIT 31.1 % (42.0-54.0); HEMOGLOBIN 9.6 g/dL (13.5-17.5); IMMATURE GRANULOCYTES 0.2 % (0-5); LYMPHOCYTES 4.7 % (15-50); MCHC 30.9 g/dL (31.0-37.0); MEAN PLATELET VOLUME 9.3 fL (7.4-10.4); MONOCYTES 7.1 % (2-11); NEUTROPHILS 87.1 % (40-80); PLATELET COUNT 168 10x3/uL (130-400); RBC 3.31 10x6/uL (4.20-6.10); RDW 15.7 % (11.5-14.5); WBC 12.5 10x3/uL (4.8-10.8)
[2019-12-29 06:53] LABS: ALBUMIN 2.4 g/dL (3.4-5.0); ANION GAP 14.2 mmol/L (8-16); BILIRUBIN - TOTAL 0.54 mg/dL (0.2-1.3); CALCIUM 7.3 mg/dL (8.5-10.1); CARBON DIOXIDE 25.5 mmol/L (21.0-32.0); CREATININE - SERUM 1.3 mg/dL (0.6-1.3); MAGNESIUM - SERUM 2.2 mg/dL (1.8-2.4); PHOSPHOROUS 4.3 mg/dL (2.5-4.9); POTASSIUM - SERUM 3.7 mmol/L (3.5-5.1); PROTEIN - SERUM 5.4 g/dL (6.4-8.2)
--- NOTE | 2019-12-29 10:31 | OP ---
PATIENT NAME: BLAIR ARVIZU MEDICAL RECORD: [id number] :49 LOCATION:[facility] D.CV02 ADMISSION DATE:12/22/19 SURGEON: KORY CALZADA MD DATE OF OPERATION: 12/28/2019 SURGEON: Kory Calzada MD PROCEDURE: Percutaneous removal of intraaortic balloon pump. DESCRIPTION OF PROCEDURE: With the patient supine, sedated, intubated in the cardiovascular intensive care with a heart rate, blood pressure, and pulse oximetry monitor as well as Doppler pulses of the right posterior tibial, the sutures holding the catheter were removed and the catheter was removed intact. Direct pressure was held for 30 minutes. No apparent complications. Good Doppler pulse. TRANSINT:[id number] Voice Confirmation ID: [id number] DOCUMENT ID: [id number] KORY CALZADA MD at 1031 CC: [id number] DICTATION DATE: 12/28/19 1025 CYLINDER HONER: 12/28/19 194 ADM IN [facility] [address] [place] [id number]
--- NOTE | 2019-12-29 11:39 | NUR ---
0700: REC'D SUPINE POSTION. AROUSES TO VERBAL STIMULI AND FOLLOWS COMMANDS. SEE ASSESSMENT. 1020: DR. CALZADA HERE. NEW ORDERS REC'D. IVF DECREASED TO 30CC/HR. 1025: FIO2 DECREASED TO 60%.
--- NOTE | 2019-12-29 18:29 | NUR ---
OGT INSERTED AND PLACEMENT VERIFIED BY TWO NURSES. TUBE CLAMPED AND SECURED.
--- NOTE | 2019-12-29 19:25 | NUR ---
REPORT REC'D AND CARE ASSUMED, REC'D PT ON VENT VIA 8.0 ETT TAPED @ 24CM LIPLINE SEE FLOWSHEET FOR VENT SETTINGS, OGT TAPED SECURELY TO ETT, PLACEMENT VERIFIED BY AUSCULTATION, CLAMPED AT THIS TIME, JERRY REICH, DRSG CDI MANNIFOLD TO PROXIMAL INFUSION WITH PLASMALYTE @ 30CC/HR, AMIODARONE @ 0.5MG/MIN, DOBUTAMINE @ 2MCG/KG/MIN OR 3.9CC/HR, AND DIPRIVAN @ 25 MCG/KG/MIN, MIDSTERNAL DSG CDI, MEDIASTINAL CTS X 2 TO 20CM H2O SUCTION, NO AIR LEAK NOTED, SCANT DRAINAGE PRESENT, LEFT SUBSTERNAL RADHA DRAIN COMPRESSED WITH SEROSANGUINOUS DRAINAGE, DRSGC CDI, LEPE PATENT DRAINING CLEAR YELLOW URINE, RIGHT LEG HARVEST SITES WITH DERMABOND, NO REDNESS OR DRAINAGE NOTED, INCISIONS WELL APPROXIMATED, BILAT TEDS AND SCDS, LOWER EXTS COLD TO TOUCH, PPP BY DOPPLER, BILAT SOFT WRIST RESTRAINTS, BED IN LOW POSITION, 1:1 NURSING CARE.
--- NOTE | 2019-12-29 21:00 | NUR ---
EVENING MEDS GIVEN ORDERED, AMIODARONE ORDER CLARIFICATION NEEDEDS, SPOKE WITH DR. CALZADA, JACOBO EID PLACED ON HOLD.
--- NOTE | 2019-12-29 21:45 | NUR ---
PT REPOSITIONED ONTO LEFT SIDE SUPPORTED WITH PILLOW, TOLERATED WELL, O2 SAT DECREASED FROM 93 TO 88% WILL MONITOR CLOSELY FOR CHANGES.
--- NOTE | 2019-12-29 23:00 | NUR ---
REASSESSMENT COMPLETED, PT RESTING EYES CLOSED ON VENT, RESP RATE 14, O2 SAT 92%, BP STABLE, WILL CONT TO MONITOR CLOSELY FOR CHANGES
[2019-12-30] VITALS (45 sets, daily range): BP systolic 99–148; BP diastolic 40–60
--- NOTE | 2019-12-30 01:30 | NUR ---
PT REPOSITIONED IN BED AND ONTO RIGHT SIDE SUPPORTED PILLOW, O2 SAT DECREASED TO 88% TOOK APPROXIMATELY 25 MINUTES FOR O2 SAT TO RETURN TO 92%, PT TOLERATES TURNING WITHOUT RESISTING.
--- NOTE | 2019-12-30 03:00 | NUR ---
PT REPOSITIONED FOR COMFORT, ORAL CARE PROVIDED, NO CHANGES FROM PREVIOUS ASSESSMENT O2 SAT 96%, VSS.
--- NOTE | 2019-12-30 03:20 | NUR ---
RADIOLOGY AT BS FOR AM CXR
[2019-12-30 05:44] LABS: BASOPHILS 0.2 % (0-2); EOSINOPHILS 5.4 % (0-7); HEMATOCRIT 29.8 % (42.0-54.0); HEMOGLOBIN 9.5 g/dL (13.5-17.5); IMMATURE GRANULOCYTES 0.2 % (0-5); LYMPHOCYTES 19.6 % (15-50); MCHC 31.9 g/dL (31.0-37.0); MEAN PLATELET VOLUME 9.2 fL (7.4-10.4); MONOCYTES 11.7 % (2-11); NEUTROPHILS 62.9 % (40-80); PLATELET COUNT 154 10x3/uL (130-400); RBC 3.17 10x6/uL (4.20-6.10); RDW 15.4 % (11.5-14.5); WBC 6.3 10x3/uL (4.8-10.8)
--- NOTE | 2019-12-30 05:45 | NUR ---
AM LAB DRAWN FROM CVL AND SENT TO LAB, COMPLETE CHG BATH AND LINEN CHANGE PROVIDED, PT REPOSITIONED UP AND ONTO RIGHT SIDE SUPPORTED WITH PILLOW, CM-UCAF @ 105, BP STABLE, WILL MONITOR CLOSELY FOR CHANGES
[2019-12-30 05:58] LABS: ALBUMIN 2.1 g/dL (3.4-5.0); ANION GAP 9.2 mmol/L (8-16); BILIRUBIN - TOTAL 0.58 mg/dL (0.2-1.3); CALCIUM 7.4 mg/dL (8.5-10.1); CARBON DIOXIDE 28.5 mmol/L (21.0-32.0); CREATININE - SERUM 1.3 mg/dL (0.6-1.3); MAGNESIUM - SERUM 2.2 mg/dL (1.8-2.4); PHOSPHOROUS 3.3 mg/dL (2.5-4.9); POTASSIUM - SERUM 3.7 mmol/L (3.5-5.1); PROTEIN - SERUM 5.2 g/dL (6.4-8.2)
--- NOTE | 2019-12-30 06:55 | NUR ---
DR. CALZADA NOTIFIED OF [facility], ORDER REC'D FOR 150MG AMIODARONE BOLUS AT THIS TIME.
--- NOTE | 2019-12-30 13:12 | NUR ---
1100: FIO2 DECREASED TO 50%. 1230: DR. NICE HERE. NO NEW ORDERS. 1300: DR. JONAS HERE. FIO2 INCREASED BACK TO 60%. NOT TO WEAN PER ORDER DR. JONAS.
--- NOTE | 2019-12-30 13:53 | NUR ---
DR. JONAS SPEAKING TO AT BEDSIDE. QUESTIONS ANSWERED.
--- NOTE | 2019-12-30 15:42 | NUR ---
1515: OGT ADVANCE APPROX 4 CM AND RESECURED. 1545: TUBE FEEDING STARTED VIA OGT @ 10CC/HR. GLUCERNA 1.5 SUBSTITUTED FOR PULMONARE DUE TO HISTORY OF DIABETES. WILL MONITOR BLOOD SUGAR Q 6 HOUR.
--- NOTE | 2019-12-30 21:06 | NUR ---
DR NICE NOTIFIED OF RHYTHM CHANGE, NO ORDERS RECEIVED AT THIS TIME.
--- NOTE | 2019-12-30 21:45 | NUR ---
ASSESSMENT COMPLETED. PT POSITIONED FOR COMFORT. WHEN ASSESSED PT OG TUBE WAS CURLED IN THE PT MOUTH TUBE FEED STOPPED AND OG REINSERTED AND VERIFIED WITH TWO NURSES PER ASCULTATION. PT HEART RHYTHM IS IN AND OUT OF A-FIB, PT RATE NOT EXCEEDING 105. WAS TOLD IN REPORT THAT WAS AWARE. WILL CONTINUE TO MONITOR.
--- NOTE | 2019-12-30 23:00 | NUR ---
REASSESSMENT COMPLETE PT REPOSITIONED FOR COMFORT WILL CONTINUE TO MONITOR.
[2019-12-31] VITALS (48 sets, daily range): BP systolic 86–144; BP diastolic 36–68
--- NOTE | 2019-12-31 01:00 | NUR ---
PT REPOSITIONED FOR COMFORT. VSS. WILL CONTINUE TO MONITOR.
[2019-12-31 05:40] LABS: BASOPHILS 0.1 % (0-2); EOSINOPHILS 5.7 % (0-7); HEMATOCRIT 31.6 % (42.0-54.0); IMMATURE GRANULOCYTES 0.3 % (0-5); LYMPHOCYTES 13.2 % (15-50); MCH 29.7 pg (26.0-34.0); MCHC 31.6 g/dL (31.0-37.0); MCV 93.8 fL (80.0-100.0); NEUTROPHILS 71.7 % (40-80); PLATELET COUNT 165 10x3/uL (130-400); RBC 3.37 10x6/uL (4.20-6.10); RDW 15.3 % (11.5-14.5); WBC 7.3 10x3/uL (4.8-10.8)
[2019-12-31 06:00] LABS: ALBUMIN 2.1 g/dL (3.4-5.0); ANION GAP 9.6 mmol/L (8-16); BILIRUBIN - TOTAL 0.6 mg/dL (0.2-1.3); CALCIUM 7.9 mg/dL (8.5-10.1); CARBON DIOXIDE 27.1 mmol/L (21.0-32.0); CREATININE - SERUM 1.3 mg/dL (0.6-1.3); MAGNESIUM - SERUM 2.3 mg/dL (1.8-2.4); PHOSPHOROUS 3.1 mg/dL (2.5-4.9); POTASSIUM - SERUM 3.7 mmol/L (3.5-5.1); PROTEIN - SERUM 5.5 g/dL (6.4-8.2)
--- NOTE | 2019-12-31 06:34 | NUR ---
DR NICE UPDATED ABOUT PT NO NEW ORDERS. POSITIONED PT FOR COMFORT WILL CONTINUE TO MONITOR.
--- NOTE | 2019-12-31 07:00 | NUR ---
REPORT RECEVID FROM THE OFF GOING RN. SEE ASSESSMENT IN THE PTS FLOW SHEET. PT SEDATED ON THE VENTILATOR. 8.0 ETT NOTED 22 AT THE LIP. OGT NOTED WITH GLUCERNA AT 20ML/H WITH 10 CC OF RESIDUAL NOTED. PLACEMENT CHECKED VIA A&A. RIGHT IJ SWAN-RACHANA CATHETER LOCKED AT ABOUT 49 CM. SEE IV FLUIDS IN THE PTS FLOW SHEET. MIDSTERNAL AND SUBSTERNALD RESSING C/D/I. CT X3 NOTED. CT LABLED P HAS 2 CT'S Y'D INTO A SINGLE TUBE. CT A IS A SINGLE TUBE. BOTH TO 20 CM H2O SUCTION. NO AIR LEAK NOTED. LEFT RADHA DRAIN COMPRESSED. CT'S HAVE SEROUSANG DRAINAGE NOTED. TPM WIRES NOTED CONNECTED TO A PACEMAKER BUT IT IS TURNED OFF PER CTS. FC NOTED WITH CLEAR, YELLOW URINE. RLE HARVEST SITES NOTED AND WELL APPROXIMATRED. OSMIN HOSE AND SC'D ON THE PATIENT. PT IN UNCOTROLLED AFIB RATE 110. DR NICE AWARE. SEE ORDERS. KEN NOTED TO THE R RADIAL. WRIST PROTECTOR ON. GOOD WAVE FORM NOTED. VSS AT THIS TIME. WILL CONT POC.
--- NOTE | 2019-12-31 07:01 | NUR ---
DR NICE NOTIFIED ABOUT PT HEART RATE AND RHYTHM. NEW ORDERS RECIEVED. WILL CONTINUE TO MONITOR.
--- NOTE | 2019-12-31 07:45 | NUR ---
PT CONVERETED TO A NRS RATE 70.
--- NOTE | 2019-12-31 08:50 | NUR ---
TREAT ABG K LVL PER SS. 10KCL GIVEN PER DR NICE.
--- NOTE | 2019-12-31 09:15 | NUR ---
PT CARDIAC INDEX 2.0 ANB BP 92/38. DR NICE NOTIFIED. HE STATED TO DECREASE THE SEDATION AND ATTEMPT TO WAKE THE PATIENT UP.
--- NOTE | 2019-12-31 09:45 | NUR ---
PT AWAKE AND BP INCREASED. PT FOLLOWING COMMANDS. VSS IMPROVED. WILL CONT POC.
--- NOTE | 2019-12-31 10:00 | NUR ---
DR DOLL IN THE PTS ROOM. FIO2 DECREASE TO 50%. WILL CONT TO WINNIE.
--- NOTE | 2019-12-31 10:21 | NUR ---
Nutrition Follow-up: POD 4 CABG. Noted OGT placed yesterday and TF started. Order is for Pulmocare @ goal rate of 40; Glucerna 1.5 running at 20 this AM. Discussed with nursing; will exchange TF for ordered Pulmocare. Nursing reports bowel sounds but no BM. Diet: Pulmocare - goal rate 40 mL/hr Wt: 178.5# (12/30); 174.1# (12/27); 152# (12/21) Labs noted: Glu 122, Ca 7.9, Alb 2.1 Meds noted: Protonix, Colace, Diprivan, KCl -Rec continue to advance TF as tolerated to goal rate. -Monitor wt. -RD following.
--- NOTE | 2019-12-31 10:51 | NUR ---
DR CARR IN THE PTS ROOM. CT PULLED, HE WILL PULL SWAN-RACHANA, DC CVP MONITORING AND ORDER FOR PICC LINE.
--- NOTE | 2019-12-31 11:00 | NUR ---
REASSESSMENT COMPLETED. SEE FLOW SHEET. WILL CONT POC.
--- NOTE | 2019-12-31 13:00 | NUR ---
VSS. WILL CONT WEEN VENT AND 1:1 CARE.
--- NOTE | 2019-12-31 14:26 | NUR ---
DR NICE'S NURSE NOTIFIED ABOUT ABG RESULTS. GIVE 20 KCL OVER 3 HOURS AND RECHECK ABG.
--- NOTE | 2019-12-31 14:58 | NUR ---
SPOKE WITH DR DOLL. UPDATE GIVEN. PER DR DOLL. ATTEMPT TO WEEN OFF THE VENT TOMORROW.
--- NOTE | 2019-12-31 18:54 | NUR ---
PT VSS. REMAINS IN A NSR. CALL LIGHT IN REACH. WILL CONT POC.
--- NOTE | 2019-12-31 19:15 | NUR ---
PT RECEIVED SEDATED ON VENT, A/C 14, 550, 50%, 6. VITAL SIGNS STABLE. RIGHT IJ PATENT WITH PLASMALYTE, AMIODARONE, DOBUTAMINE, PROPOFOL, AND FENTANYL. RIGHT RADIAL KEN. TUBE FEEDING VIA OGT PULMOCARE 30ML/HR. RADHA DRAIN WITH SEROUS DRAINAGE NOTED. LEPE PATENT WITH CLEAR YELLOW URINE NOTED. NO S/S OF DISTRESS. WILL CONTINUE TO OBSERVE.
--- NOTE | 2019-12-31 21:30 | NUR ---
SCHEDULE MEDICATIONS GIVEN PER MAR, TOLERATED WELL. NO S/S OF DISTRESS. WILL CONTINUE TO OBSERVE.
[2020-01-01] VITALS (43 sets, daily range): BP systolic 87–147; BP diastolic 23–69
--- NOTE | 2020-01-01 01:27 | NUR ---
TEMP INCREASING 101.4 TYLENOL GIVEN. SPO2 NOT GETTING GOOD SIGNAL WITH PROB CHANGED CONTINUES WITHOUT GOOD SIGNAL, CABLE CHANGED AND GETTING PULSE TO MATCH AND SPO2 88, RT NOTIFIED AND FIO2 INCREASED TO 70 FROM 50. SPO2 PROB PLACED ON FOREHEAD WITH GOOD WAVEFORM AND PULSES MATCH WITH HR MONITOR. SPO2 92% OR GREATER AT THIS TIME. WILL CONTINUE TO OBSERSE.
--- NOTE | 2020-01-01 05:34 | NUR ---
TUBE FEEDING RATE INCREASED TO 40ML/HR WHICH IS GOAL. RESIDUAL 10ML.
--- NOTE | 2020-01-01 06:00 | NUR ---
CHG BATH GIVEN AND DRESSINGS CHANGED. TOLERATED WELL.
[2020-01-01 06:17] LABS: HEMATOCRIT 29.8 % (42.0-54.0); HEMOGLOBIN 9.3 g/dL (13.5-17.5); MCH 29.2 pg (26.0-34.0); MCHC 31.2 g/dL (31.0-37.0); MCV 93.7 fL (80.0-100.0); MEAN PLATELET VOLUME 8.7 fL (7.4-10.4); RBC 3.18 10x6/uL (4.20-6.10); RDW 15.2 % (11.5-14.5)
[2020-01-01 06:21] LABS: WBC 9.4 10x3/uL (4.8-10.8)
[2020-01-01 06:45] LABS: ALBUMIN 1.9 g/dL (3.4-5.0); ANION GAP 11.4 mmol/L (8-16); BILIRUBIN - TOTAL 0.69 mg/dL (0.2-1.3); CALCIUM 7.9 mg/dL (8.5-10.1); CARBON DIOXIDE 25.6 mmol/L (21.0-32.0); CREATININE - SERUM 1.3 mg/dL (0.6-1.3); PROTEIN - SERUM 5.4 g/dL (6.4-8.2)
--- NOTE | 2020-01-01 07:00 | NUR ---
REPORT RECIEVED FROM THE OFF GOING RN. SEE ASSESSMENT IN THE PTS FLOW SHEET. PT SEDATED AND ON THE VENITLATOR. PT ON 70% FIO2. PT CRACKLES NOTED THROUGHT LUNGS. PT SUCTIONED AND THICK TANNISH SECREATIONS NOTED. O2 SATURATION INCRASED FROM 95 TO 98%. OGT NOTED WITH PULMOCARE AT 40ML/H. <10 CC RESIDUAL. PLACEMENT CHECKED VIA A&A. RIGHT IJ CVL NOTED. SEE IV GTTS IN FLOW SHEET. MIDSTERNAL AND SUBSTERNAL DRESSING C/D/I. LEFT RADHA DRAIN COMPRESSED WITH SERSOUSANG DRAINAGE NOTED. TPM WIRES CONNECTED TO THE PACEMAKER BUT IT IS TURNED OFF PER CTS. RIGHT RADIAL KEN NOTED WITH A BAD WAVE FORM. KEN FLUSHED AND HAND REPOSITIONED. OCCASIOANLLY WILL HAVE A GOOD WAVE FORM BUT IT DAMPENS FC NOTED WITH CLEAR, YELLOW URINE. RLE HARVEST SITES INVENTORY MANAGEMENT SPECIALIST AND WELL APPROXIMATED. PT IN A NSR. EXTRIEMITES PLACED ON PILLOWS. CALL LIGHT IN REACH. WILL CONT POC.
--- NOTE | 2020-01-01 07:37 | NUR ---
TRAE VOGEL, VASCULAR ACCESS NURSE, CALLED FOR PICC LINE PLACEMENT.
--- NOTE | 2020-01-01 09:06 | NUR ---
LIUDMILA ARVIZU CALLED AND OBTAINED CONSENT FOR PICC LINE PLACEMENT. WITTNESSED BY VARGAS LOPEZ. TRAE TUTTLE RN AT THE PTS BEDSIDE PLACING PICC LINE.
--- NOTE | 2020-01-01 09:36 | NUR ---
TRAE TUTTLE PLACED A PICC LINE TO THE RIGHT UPPER ARM. 1CM STICKING OUT FROM THE ARM PER TRAE. PICC FLUSHES WELL AND ASPRIRATES WELL IN BOTH PORTS. CVL DC'D PER CTS. CATHETER TIP INTACT. PRESSURE HELD. NO S/SX OF BLEEDING NOTED. DRESSING APPLIED. WILL CONT POC.
--- NOTE | 2020-01-01 09:36 | NUR ---
DR DOLL AT THE PATIENTS BEDSIDE. HE STATED TO DO PRESSURE SUPPORT TRIALS 17/11 WITH 70% FIO2 FOR 30 MINS.
--- NOTE | 2020-01-01 11:15 | NUR ---
PT WENT ON SPONTANEOUS MODE FOR 30 MINS ON 70% FIO2. PT MAINTIAINED AN SPO2 ABOVE 94%. AFTER PATIENT WAS SWITCHED BACK TO AC MODE AND THE SEDATION WAS TURN BACK ON, THE PATIENT WENT INTO AFIB RATE 109. PT CONVERTED AFTER ABOUT 5 MINUES TO A NRS RATE 87. ROSEMARIE RN, DR LEON NURSE, PAGED AND NOTIFIED.
--- NOTE | 2020-01-01 13:53 | NUR ---
DR CALZADA IN THE UNIT. SEE ORDERS.
--- NOTE | 2020-01-01 16:40 | NUR ---
PT HAD A BURST OF AFIB RATE 110 AND SELF CONVERTED AFTER [address] VSS AT THIS TIME. DR CALZADA NURSE COURTNI NOTIFIED.
--- NOTE | 2020-01-01 17:05 | MORECARE ---
CASE MANAGEMENT DISCHARGE SUMMARY PATIENT: BLAIR ARVIZU UNIT: [id number] ADM DATE: 12/22/19 AGE: 74 : 47 SEX: M ROOM/BED: D.02 AUTHOR: CHRISTOPHERDOC PHYSICIAN: REFERRING PHYSICIAN: OSMIN MOE DO DATE OF SERVICE: 01/01/20 Discharge Plan Patient Name: BLAIR ARVIZU Facility: [facility]:[place] : 1945 Planned Disposition: Anticipated Discharge Date: Discharge Date: Expected LOS: Initial Reviewer: [email or web address] Initial Review Date: 12/22/2019 Generated: 01/01/20 6:05 pm Comments DCP- Discharge Planning Updated by [id number]: Tessie Church on 01/01/20 4:[address] Patient Name: BLAIR ARVIZU Admission Status: ER Accout number: [id number] Admission Date: 12-22-2019 : 1945 Admission Diagnosis:CHEST PAIN, UNSPECIFIED Attending: OSMIN MOE Current LOS: 10 Anticipated DC Date: Planned Disposition: Primary Insurance: MEDICARE A & B Discharge Planning Comments: CM met with patient's to complete initial dc planning assessment. CM educated patient on the CM role and verbal consent given by patient to complete assessment. Patient lives at home with family. Patient is independent. At discharge patient plans to return home and feels this is a safe discharge. CM discussed availability of home health, rehab services, and medical equipment. Patient will have family to transport home. Patient denied known discharge needs at this time. CM will continue to follow and will assist as needed with dc plans/needs. Marketing Operations Specialist: Tessie Church DCPIA - Discharge Planning Initial Assessment Updated by [email or web address]: Tessie Church on 01/01/20 5:00 pm * Is the patient Alert and Oriented? Yes * How many steps to enter\exit or inside your home? * PCP [facility] * Pharmacy - [facility] * Preadmission Environment Home with Family * ADLs Independent * Other Equipment WALKER AND SC IF NEEDED * List name and contact numbers for known caregivers / representatives who currently or will assist patient after discharge: JEFFREY ARVZIU - SPOUSE - [phone] * Verbal permission to speak to the caregivers and representatives has been obtained from the patient. Yes * Community resources currently utilized None * Additional services required to return to the preadmission environment? No * Can the patient safely return to the preadmission environment? Yes * Has this patient been hospitalized within the prior 30 days at any hospital? No Patient Name: BLAIR ARVIZU Page [id number] at 1705 All edits/amendments must be made on the electronic document DICTATION DATE: 01/01/201704 FISH AND WILDLIFE TECHNICIAN: GILES 01/01/201704 RPT#: [id number] DC DATE: STATUS: ADM IN [facility] [address] [place] [address] END OF REPORT
[2020-01-01 17:16] LABS: ALBUMIN 1.7 g/dL (3.4-5.0); ANION GAP 9.9 mmol/L (8-16); BILIRUBIN - TOTAL 0.46 mg/dL (0.2-1.3); CREATININE - SERUM 1.2 mg/dL (0.6-1.3); MAGNESIUM - SERUM 2.5 mg/dL (1.8-2.4); POTASSIUM - SERUM 3.9 mmol/L (3.5-5.1); PROTEIN - SERUM 5.2 g/dL (6.4-8.2)
--- NOTE | 2020-01-01 17:34 | NUR ---
CHUCKING MACHINE SET UP OPERATOR AT THE PTS BEDSIDE TO REPLACE KEN. KEN RESITED TO THE LEFT RADIAL ARTERY. RIGHT RADIAL KEN DC'D WITH THE CATHETER TIP INTACT. LEFT KEN HAS A GOOD WAVE FORM. WRIST PROTECTOR ON. KEN PRESSURE CORELATES WITH THE NIBP. VSS. PT IN A NSR. WILL CONT PO.
--- NOTE | 2020-01-01 18:27 | NUR ---
PT HYPOTENSIVE. DR CALZADA IN THE ROOM. START KORY. SEE FLOW SHEET. KORY TITRATED PER ORDERS.
--- NOTE | 2020-01-01 19:10 | NUR ---
PT RECEIVED SEDATED ON VENT. NO S/S OF DISTRESS. PICC TO RIGHT UPPER ARM. LEPE PATENT. RADHA DRAIN PATENT WITH SEROUS DRAINAGE NOTED. OSMIN AND SCDS ON. WILL CONTINUE TO OBSERVE.
--- NOTE | 2020-01-01 21:30 | NUR ---
CALLED, PASSCODE GIVEN. UPDATE PROVIDED.
[2020-01-02] VITALS (88 sets, daily range): BP systolic 70–153; BP diastolic 32–839
--- NOTE | 2020-01-02 04:00 | NUR ---
PT B/P AND HR ELEVATED, RESPIRATIONS INCREASED, AND SPO2 DECREASED TO 88 TO 90. PROBS CHECKED. PT REPOSITIONED. TEMP BEGAN TO INCREASE. TYLENOL GIVEN. HR AND B/P WNL, BUT SPO2 WOULD NOT INCREASE WITH FIO2 AT 100%. CIVIL DESIGN SPECIALIST CALLED AND RECEIVED ORDER TO INCREASE PEEP TO 8 FROM 6 AND SODIUM BICARBINATE. 1 AMP GIVEN. WILL CONTINUE TO OBSERVE.
[2020-01-02 05:44] LABS: HEMATOCRIT 31.3 % (42.0-54.0); HEMOGLOBIN 9.7 g/dL (13.5-17.5); MCH 28.9 pg (26.0-34.0); MCV 93.2 fL (80.0-100.0); MEAN PLATELET VOLUME 8.7 fL (7.4-10.4); RBC 3.36 10x6/uL (4.20-6.10); RDW 15.2 % (11.5-14.5); WBC 8.1 10x3/uL (4.8-10.8)
[2020-01-02 06:19] LABS: ALBUMIN 1.7 g/dL (3.4-5.0); ANION GAP 11.4 mmol/L (8-16); BILIRUBIN - TOTAL 0.64 mg/dL (0.2-1.3); CALCIUM 8.1 mg/dL (8.5-10.1); CARBON DIOXIDE 27.6 mmol/L (21.0-32.0); CREATININE - SERUM 1.3 mg/dL (0.6-1.3); PROTEIN - SERUM 5.6 g/dL (6.4-8.2)
--- NOTE | 2020-01-02 07:00 | NUR ---
REPORT RECEIVED FROM THE OFF GOING RN. SEE ASSESSMENT IN THE PTS FLOW SHEET. PT SEDATED AND ON THE VENT. 8.0 ETT 23 MIDLINE LIP. AC 14 550 100% PEEP 8. CRACKLES NOTED THROUGHOUTS LUNGS. PT DEEP SUCTIONED WITH HILL SECREATIONS NOTED. OGT NOTED. PLACEMENT CHECKED VIA A&A. <10 CC OF RESIDUAL NOTED. PULMOCARE AT 40ML/H. MIDSTERNAL AND SUBSTERNAL DRESSING C/D/I. L RADHA COMPRESSED WITH SERSOUS DRAINAGE NOTED. COMPRESSED. DRESSING CHANGED PER ORDERS. OLD CT SITES SLIGHTLY PINK WITH NO DRAINAGE NOTED. TPM WIRES NOTED AND CONNECTED TO PACEMAKER. PACEMAKER OFF PER CTS. LEFT RADIAL KEN NOTED WITH A GOOD WAVE FORM. WRIST PROTECTOR ON. RIGHT UPPER PICC LINE NOTED. SEE IV GTTS IN FLOW SHEET. FC NOTED WITH YELLOW URINE. RLE HARVEST SITE SALES PROCESS MANAGER AND WELL APPROIMATED. OSMIN FALK AND SCD'S ON. VSS AT THIS TIME. NSR 93. CALL LIGHT IN REACH. WILL CONT POC.
--- NOTE | 2020-01-02 09:01 | NUR ---
DR DOLL AT THE PTS BEDSIDE. PLAN FOR BRONCH TODAY.
--- NOTE | 2020-01-02 09:21 | NUR ---
FIREFIGHTING EQUIPMENT SPECIALIST AT THE PTS BEDSIDE.
--- NOTE | 2020-01-02 10:57 | NUR ---
DR CALZADA IN THE UNIT. INCREASE DOBUTAMINE TO 4MCG/KG/MIN.
--- NOTE | 2020-01-02 11:09 | NUR ---
Nutrition Follow-up: POD 6 CABG. Remains intubated. Receiving Pulmocare @ 40 this AM. Diet: Pulmocare - goal rate 40 Wt: 174# (01/01); 178.5# (12/30); 152# (12/21) No BMs recorded Labs noted: Glu 144, Ca 8.1, Alb 1.7 Meds noted: Protonix, Colace, Diprivan -TF per MD. -Monitor wt. -RD following.
--- NOTE | 2020-01-02 11:45 | NUR ---
DR DOLL AT THE PTS BEDSIDE DOING THE BRONCOSCOPY. AFTER BRONCH, PT DESTATURATED TO 82%. FIO2 100% PEEP 8. RT AND DR DOLL NOTIFIED. STAT CXR, XOPENOX TX (RT NOTIFIED) INCRAESE PEEP TO 10.
--- NOTE | 2020-01-02 12:08 | NUR ---
O2 SATURATION 95%. VSS AT THIS TIME. AT THE PTS BEDSIDE. DR CALZADA SPOKE WITH THE AND GAVE HER AN UPDATE.
--- NOTE | 2020-01-02 12:11 | NUR ---
DR OLSEN AT THE PTS BEDSIDE.
--- NOTE | 2020-01-02 12:45 | NUR ---
PT DESATUATING TO 85%. DR LAVON BOYD. BRO PRN, CTA OF CHEST WITH CONTRAST WHEN STABLE, XOPENEX NOW, VENT CARLOS: TV 500 RATE 16 (RT NOTIFIED), ABG IN 30 MINUTES AFTER UDT.
--- NOTE | 2020-01-02 12:58 | NUR ---
PT DESATURATED 81% DR DOLL PAGEAnna WAITING FOR RESPONSE, RT IN THE ROOM BAGGING THE PT ON 100% O2. O2 SATURATION INCREASED TO 90%. PT WENT INTO AFIB RATE 108 AND SELF CONVERTED AFTER [address] CALZADA PAGED AND NOTIFIED OF THE PATIENTS CONDITION.
--- NOTE | 2020-01-02 13:09 | NUR ---
ABG RESULTS RECEIVED. DR DOLL PAGED AGAIN.
--- NOTE | 2020-01-02 13:20 | NUR ---
DR DOLL PAGED BACK AND IS ON HIS WAY.
--- NOTE | 2020-01-02 13:25 | NUR ---
DR DOLL AT THE PTS BEDSIDE. SEE ORDERS. DR CALZADA UPDATED ON THE PATEINTS CONDITION.
--- NOTE | 2020-01-02 13:55 | NUR ---
VSS AT THIS TIME. TITRATING LEVOPHED TO EFFECT. AT THE PTS BEDSIDE. [facility] POC.
--- NOTE | 2020-01-02 14:48 | NUR ---
DR DOLL WANTED THE AMIO TURNED OFF. DR CALZADA NOTIFIED AND HE AGREES.
--- NOTE | 2020-01-02 16:15 | NUR ---
ABG RESULTS RECEIVED. MUCH IMPROVED. DR CALZADA IN THE UNIT. HE STATED HE WILL LOOK AT THEM. DR DOLL PAGED FOR UPDATE.
--- NOTE | 2020-01-02 17:37 | NUR ---
TITRATIN LEVOPHED TO EFFECT. VSS AT THIS TIME. WAITING FOR PRBC. WILL CONT 1:1 CARE.
--- NOTE | 2020-01-02 19:45 | NUR ---
PT RECEIVED SEDATED ON VENT, AC 16, 500, 100%, 10.0. RIGHT UPPER ARM PICC RECEIVING PLASMALYTE 30ML/HR, DOBUTAMINE 4MCG/KG/MIN, PROPOFOL 40 MCG/KG/MIN, FENTANYL 150 MCG/H, LEVOPHED 0.031 MCG/KG/MIN AND 1 OF 1 UNIT PRBC. VITAL SIGNS STABLE. ASSESSMENT COMPLETED, SEE FLOW SHEET. RADHA DRAIN WITH SEROUS FLUID. LEPE PATENT WITH YELLOW URINE. ETT 8.O AT 24CM @ LIP. WILL CONTINUE TO OBSERVE.
--- NOTE | 2020-01-02 21:59 | NUR ---
PT CONTINUES SEDATION WITH VENT, NO CHANGES TO SETTINGS. PT STACKING BREATHS WITH PROPOFOL INCREASED TO 50 MCG/KG/MIN AT THIS TIME. VITAL SIGNS STABLE. NO S/S OF DISTRESS. WILL CONTINUE TO OBSERVE.
--- NOTE | 2020-01-02 23:24 | NUR ---
RIGHT UPPER ARM PICC DRESSING CHANGED PER PROTOCOL.
[2020-01-03] VITALS (112 sets, daily range): BP systolic 74–142; BP diastolic 33–62
--- NOTE | 2020-01-03 04:22 | NUR ---
CHG BATH GIVEN WITH LEPE CARE PROVIDED. COMPLETE LINEN CHANGE. PT TOLERATED WELL.
[2020-01-03 06:43] LABS: HEMATOCRIT 26.7 % (42.0-54.0); HEMOGLOBIN 8.5 g/dL (13.5-17.5); MCH 29.5 pg (26.0-34.0); MCHC 31.8 g/dL (31.0-37.0); MCV 92.7 fL (80.0-100.0); MEAN PLATELET VOLUME 8.9 fL (7.4-10.4); RBC 2.88 10x6/uL (4.20-6.10); RDW 15.2 % (11.5-14.5)
[2020-01-03 06:56] LABS: ALBUMIN 1.6 g/dL (3.4-5.0); ANION GAP 12.7 mmol/L (8-16); BILIRUBIN - TOTAL 0.76 mg/dL (0.2-1.3); CALCIUM 8.4 mg/dL (8.5-10.1); CREATININE - SERUM 1.3 mg/dL (0.6-1.3); POTASSIUM - SERUM 3.7 mmol/L (3.5-5.1); PROTEIN - SERUM 5.1 g/dL (6.4-8.2)
--- NOTE | 2020-01-03 08:12 | NUR ---
0700 PT RECEIVED SEDATED, ETT SECURED, OGT WITH PULMOCARE INFUSING AT GOAL RATE, R PICC DRESSING CDI, SEE IV FLOWSHEET, L RADIAL A LINE ZEROED, GOOD WAVEFORM, WRIST PROTECTOR IN PLACE, MIDSTERNAL AND SUBSTERNAL DRESSINGS CDI WITH TPM WIRES COILED AND RADHA DRAIN COMPRESSED, RLE HARVEST SITES CDI, TEDS/SCDS IN PLACE, LEPE DRAININGYELLOW URINE, SEE SHIFT ASSESSMENT FOR DETAILS
--- NOTE | 2020-01-03 10:23 | NUR ---
Nutrition Follow-up: POD 7 CABG. Intubated/sedated. Tolerating TF at goal. Diet: Pulmocare - goal rate: 40 mL/hr Wt: 175.3# (01/02); 174.1# (12/27) -BM Labs noted: Glu 134, Ca 8.4, Alb 1.6 Meds noted: Protonix, Colace, Diprivan -TF per MD. -Monitor wt. -RD following.
--- NOTE | 2020-01-03 11:22 | NUR ---
REPORT GIVEN TO Vika VELASCO RN
--- NOTE | 2020-01-03 12:20 | NUR ---
DR CALZADA AND DR DOLL ROUNDING ON PT AT THIS TIME, ORDERS RECIEVED.
--- NOTE | 2020-01-03 12:42 | NUR ---
WILL ADMIN/BEGIN PRIMACOR WHEN RECIEVE FROM PHARMACY. ALSO WILL ADMIN LOVENOX WHEN VERIFIED BY PHARMACY.
--- NOTE | 2020-01-03 14:10 | NUR ---
PT WITH EPISODES OF DESATURATION DOWN TO 85 WITH AFIB TRENDING 100-114. AFTER PT IS BAGGED UNTIL SATS ARE INCREASED TO THE 90S PT WILL THEN TREND BACK DOWN TO MID 80S UNTIL IS BAGGED AGAIN. PT SUCTIONED BY RT, THICK BLOOD TINGED BROWN SECRETIONS NOTED WHEN SUCTIONED ETT. DR LAVON BOYD. WAITING FOR CALLBACK.
--- NOTE | 2020-01-03 14:30 | NUR ---
DR NICE AND DR CALZADA AT PTS BEDSIDE. UPDATES PROVIDED. ORDERS RECIEVED.
--- NOTE | 2020-01-03 14:44 | NUR ---
DR NICE CALLED AND NOTIFIED OF ABG RESULTS. ORDER RECIEVED FOR 1 AMP BICARB.
--- NOTE | 2020-01-03 14:48 | NUR ---
PER DR DOLL, PAUSE PRIMACOR FOR 30 MIN AND SEE IF THIS IS THE CAUSE OF PTS CHANGE IN STATUS.
--- NOTE | 2020-01-03 15:16 | NUR ---
RECIEVED CALLBACK FROM DR DOLL. ORDERED MUCOMIST AND ATROVENT X 1 AND THEN 12.5 ALBUMIN X 1, AND TO CONTINUE HOLDING PRIMACOR.
--- NOTE | 2020-01-03 16:13 | NUR ---
PTS FAMILY AT BEDSIDE AT THIS TIME. UPDATES PROVIDED. OXYGEN SATURATION CURRENTLY HOLDING 95% WITH HEART RATE 101 AFIB, LEVOPHED TITRATED TO ORDER, SEE IV FLOWSHEET.
--- NOTE | 2020-01-03 16:27 | NUR ---
DR NICE IN ROOM SEEING PT AND VISITING WITH PTS FAMILY. PHYSICIAN UPDATED ON IV DRIPS, STATED TO SEE IF CAN DECREASE SEDATION TO SEE IF WILL INCREASE BP AND ALLOW LEVOPHED RATE TO BE DECREASED.
--- NOTE | 2020-01-03 16:44 | NUR ---
CONVERTED BACK TO SINUS RHYTHM RATE 83 AT THIS TIME.
--- NOTE | 2020-01-03 18:02 | NUR ---
SPOKE WITH DR DOLL, UPDATES PROVIDED. PHYSICIAN STATED TO KEEP PRIMACOR OFF AND TITRATE LEVOPHED OFF IF ABLE. NO ACUTE DISTRESS NOTED. WILL CONTINUE PLAN OF CARE.
--- NOTE | 2020-01-03 19:00 | NUR ---
BEDSIDE SHIFT REPORT COMPLETED, IV LINES, SITES, MEDICATIONS, AND DOSAGE ASSESSED AT THIS TIME, SEE IV FLOWSHEET. SHIFT REPORT COMPLETED, SEE FLOWSHEET. PT AFEBRILE, O2 SATURATION 96% 100% FIO2 PEEP 12. WILL CONTINUE TO CLOSELY MONITOR
--- NOTE | 2020-01-03 23:30 | NUR ---
REASSESSMENT COMPLETED SEE FLOWSHEET
[2020-01-04] VITALS (94 sets, daily range): BP systolic 93–135; BP diastolic 43–64
--- NOTE | 2020-01-04 03:45 | NUR ---
REASSESSMENT COMPLETED SEE FLOWSHEET
--- NOTE | 2020-01-04 06:03 | NUR ---
INCREASED RESPIRATORY RATE AT THIS TIME. VENTILATOR COMPLIANT, AFEBRILE PT IS VERY SEDATED. WILL CONTINUE TO CLOSELY MONITOR
[2020-01-04 06:28] LABS: HEMATOCRIT 30.5 % (42.0-54.0); HEMOGLOBIN 9.8 g/dL (13.5-17.5); MCH 29.4 pg (26.0-34.0); MCHC 32.1 g/dL (31.0-37.0); MCV 91.6 fL (80.0-100.0); MEAN PLATELET VOLUME 8.9 fL (7.4-10.4); RBC 3.33 10x6/uL (4.20-6.10); RDW 15.7 % (11.5-14.5)
[2020-01-04 06:29] LABS: WBC 10.6 10x3/uL (4.8-10.8)
--- NOTE | 2020-01-04 06:38 | NUR ---
RT AT BEDSIDE AT THIS TIME
[2020-01-04 06:50] LABS: CALCIUM 7.9 mg/dL (8.5-10.1); CARBON DIOXIDE 23.6 mmol/L (21.0-32.0); POTASSIUM - SERUM 3.6 mmol/L (3.5-5.1)
[2020-01-04 06:57] LABS: CREATININE - SERUM 1.8 mg/dL (0.6-1.3)
--- NOTE | 2020-01-04 19:20 | NUR ---
REPORT REC'D AND CARE ASSUMED, REC'D PT ON VENT VIA 8.0 ETT TAPED AT THE 24 CM LIPLINE, SEE FLOWSHEET FOR VENT SETTINGS, PT SEDATED ON VENT SLIGHTLY AWAKENS TO VERBAL STIMULI BUT DOES NOT FOLLOW COMMANDS, OGT TAPED SECURELY TO ETT, PLACEMENT VERIFIED VIA SM AIR BOLUS AUSCULTATED OVER EPIGASTRIM, PULMOCARE INFUSING AT 40CC/HR, MIDSTERNAL DRSG CDI, RIGHT UPPER ARM PICC LINE DRSG CDI WITH PLASMALYTE @ 30CC/HR, DIPRIVAN @ 43MCG/KG/MIN, LEVOPHED(1MG/100) INFUSING @ 0.05MCG/KG/MIN OR 24CC/HR, FENTANYL @ 100MCG/HR OR 2CC, AND NS @ 5CC/HR, ABD DISTENDED AND TIGHT, BS ACTIVE, DRSG TO SUBSTERNAL AREA CDI, GENERALIZED EDEMA, LEPE PATENT DRAINING YELLOW URINE, RIGHT LEG HARVEST SITE INCISIONS CDI, TEDS/SCDS, PP BY DOPPLER, BILAT SOFT WRIST RESTRAINTS INTACT, SR UP X 2, BED IN LOWEST POSITION.
--- NOTE | 2020-01-04 19:25 | NUR ---
PT INCONTINENT OF LOOSE BROWN STOOL, PARTIAL BATH AND LINEN CHANGE PROVIDED, PT REPOSITIONED UP IN BED, ARMS ELEVATED ON PILLOWS, HEELS BRIDGED, PURPLE BRIANA NOTED TO LEFT BOTTOM, SR UP X 2, VISIBLE TO NURSES STATION.
--- NOTE | 2020-01-04 21:15 | NUR ---
EVENING MEDS GIVEN ORDERED, PT REPOSITIONED FOR COMFORT, VSS, WILL MONITOR FOR CHANGES.
--- NOTE | 2020-01-04 23:00 | NUR ---
REASSESSMENT COMPLETED, NO CHANGES IN STATUS AT THIS TIME, VSS.
[2020-01-05] VITALS (91 sets, daily range): BP systolic 72–124; BP diastolic 40–60
--- NOTE | 2020-01-05 01:30 | NUR ---
REPOSITIONED PT UP AND ONTO LEFT SIDE SUPPORTED WITH PILLOWS, ORAL CARE PROVIDED, ARMS ELEVATED AND HEELS BRIDGED, WILL CONT TO MONITOR FOR CHANGES.
--- NOTE | 2020-01-05 03:30 | NUR ---
REASSESSMENT COMPLETED, NO CHANGES FROM PREVIOUS ASSESSMENT WILL CONT TO MONITOR
[2020-01-05 07:16] LABS: HEMATOCRIT 32.4 % (42.0-54.0); HEMOGLOBIN 10.8 g/dL (13.5-17.5); MCH 30.3 pg (26.0-34.0); MCHC 33.3 g/dL (31.0-37.0); MEAN PLATELET VOLUME 8.8 fL (7.4-10.4); RBC 3.56 10x6/uL (4.20-6.10); RDW 15.7 % (11.5-14.5)
[2020-01-05 07:18] LABS: WBC 14.1 10x3/uL (4.8-10.8)
[2020-01-05 07:27] LABS: ANION GAP 16.4 mmol/L (8-16); CALCIUM 7.9 mg/dL (8.5-10.1); CARBON DIOXIDE 20.6 mmol/L (21.0-32.0); CREATININE - SERUM 1.9 mg/dL (0.6-1.3); VANCOMYCIN - RANDOM 21.5 ug/mL (10.0-20.0)
--- NOTE | 2020-01-05 08:33 | NUR ---
0820: DR. DOLL HERE. CONDITION UPDATE GIVEN. NEW ORDERS REC'D.
[2020-01-06] VITALS: BP 84/49
--- NOTE | 2020-01-06 05:48 | NUR ---
ATTEMPTED TO CALL PT LIUDMILA AT [phone]. UNABLE TO LEAVE MESSAGE.
[2020-01-06 07:15] LABS: HEMATOCRIT 32.3 % (42.0-54.0); HEMOGLOBIN 10.3 g/dL (13.5-17.5); MCH 29.6 pg (26.0-34.0); MCHC 31.9 g/dL (31.0-37.0); MCV 92.8 fL (80.0-100.0); MEAN PLATELET VOLUME 9.8 fL (7.4-10.4); RBC 3.48 10x6/uL (4.20-6.10); WBC 20.7 10x3/uL (4.8-10.8)
--- NOTE | 2020-01-06 09:35 | MORECARE ---
CASE MANAGEMENT DISCHARGE SUMMARY PATIENT: BLAIR ARVIZU UNIT: [id number] ADM DATE: 12/22/19 AGE: 74 : 47 SEX: M ROOM/BED: D.02 AUTHOR: CHRISTOPHERDOC PHYSICIAN: REFERRING PHYSICIAN: OSMIN MOE DO DATE OF SERVICE: 01/06/20 Discharge Plan Patient Name: BLAIR ARVIZU Facility: [facility]:[place] : 1945 Planned Disposition: Anticipated Discharge Date: Discharge Date: 01/06/2020 Expected LOS: Initial Reviewer: [email or web address] Initial Review Date: 12/22/2019 Generated: 01/06/20 10:35 am DCP- Discharge Planning Updated by [email or web address]: Tessie Church on 01/01/20 4:[address] Patient Name: BLAIR ARVIZU Admission Status: ER Accout number: [id number] Admission Date: 12-22-2019 : 1945 Admission Diagnosis:CHEST PAIN, UNSPECIFIED Attending: OSMIN MOE Current LOS: 10 Anticipated DC Date: Planned Disposition: Primary Insurance: MEDICARE A & B Discharge Planning Comments: CM met with patient's to complete initial dc planning assessment. CM educated patient on the CM role and verbal consent given by patient to complete assessment. Patient lives at home with family. Patient is independent. At discharge patient plans to return home and feels this is a safe discharge. CM discussed availability of home health, rehab services, and medical equipment. Patient will have family to transport home. Patient denied known discharge needs at this time. CM will continue to follow and will assist as needed with dc plans/needs. Associate Professor Physician: Tessie Church DCPIA - Discharge Planning Initial Assessment Updated by [email or web address]: Tessie Church on 01/01/20 5:00 pm * Is the patient Alert and Oriented? Yes * How many steps to enter\exit or inside your home? * PCP [facility] * [facility]acy - [facility] * Preadmission Environment Home with Family * ADLs Independent * Other Equipment WALKER AND SC IF NEEDED * List name and contact numbers for known caregivers / representatives who currently or will assist patient after discharge: JEFFREY ARVIZU - SPOUSE - [phone] * Verbal permission to speak to the caregivers and representatives has been obtained from the patient. Yes * Community resources currently utilized None * Additional services required to return to the preadmission environment? No * Can the patient safely return to the preadmission environment? Yes * Has this patient been hospitalized within the prior 30 days at any hospital? No Last DP export: 01/01/20 4:05 p Patient Name: BLAIR ARVIUZ Page [id number] at 0935 All edits/amendments must be made on the electronic document DICTATION DATE: 01/06/20934 [employer] HAND: GILES 01/06/2035 RPT#: [id number] DC DATE:01/06/20 STATUS: DIS IN [facility] [address] [place] [address] END OF REPORT
--- NOTE | 2020-01-08 12:13 | NUR ---
Per CMS protocol, restraint report logged into data base.
--- NOTE | 2020-01-20 09:50 | TEE ---
PATIENT:BLAIR ARVIZU MEDICAL RECORD: [id number] LOCATION:[place] [address] AGE OF PATIENT: 74 ADMISSION DATE: 12/22/19 SEX: M REFERRING PHYSICIAN: INTERPRETING PHYSICIAN: RAYMOND ESTRADA MD TRANSESOPHAGEAL ECHOCARDIOGRAM Date: 12/27/19 JOSE CHARGE Y INDICATIONS: PREMEDICATIONS: PATIENT'S RESPONSE PROCEDURE DOPPLER MEASUREMENTS: LVIT LA PA 95 RA LVOT 92 RVOT 61 Asc. Ao 146 AV Gradient Peak 8.5 AV Mean 4.3 AV Area 0.9 MV Gradient Peak 3.6 MV Mean 1.8 MV Area INTERPRETATION: Doppler: 2-D: COLOR FLOW DOPPLER NORMAL SALINE STUDY: MISCELLANOUS: DIAGNOSIS: PLAN: Business Objects:Jojo Estrada Purchasing Expeditor: Roro SALEEM COMMENTS: DATE OF SERVICE: 12/28/2019 PROCEDURE: Transesophageal echocardiogram. FINDINGS: 1. Pre-CABG, the left ventricular ejection fraction was 30% with septal hypokinesis and dyskinesis. 2. Post-bypass ejection fraction was hyperdynamic with ejection fraction 40% to 45%. There was still mild hypokinesis in the septum itself, but there was a TRANSESOPHAGEAL ECHOCARDIOGRAM REPORT [id number] BLAIR ARVIZU significant more hypercontractile segments within the lateral and inferior borders. There is mild mitral regurgitation and trace tricuspid regurgitation. The aortic valve is trileaflet. TRANSINT:[id number] Voice Confirmation ID: [id number] DOCUMENT ID: [id number] at 0950 CC: [id number] DICTATION DATE: 12/28/19 1032 PACU NURSE: 12/28/19 1206 DIS IN 01/06/20 [place] [id number] [place] [id number]
== END 2020-01-06 05:55 | DRG 233 ==
LOC: D.ER 13:56 → D.CVICU 14:28 → D.ICU 14:28 → D.M2 14:28 → D.ICU 15:50 → D.M2 12-23 18:30 → D.CVICU 12-27 12:56
PROVIDERS: Family Medicine; Internal Medicine Cardiovascular Disease; Internal Medicine Pulmonary Disease; Thoracic Surgery (Cardiothoracic Vascular Surgery); ADMIT Family Medicine; ATTEND Family Medicine
PROC: B2151ZZ Fluoroscopy of Left Heart using Low Osmolar Contrast (ICD-10-PCS; 2019-12-23)
PROC: 4A023N7 Measurement of Cardiac Sampling and Pressure, Left Heart, Percutaneous Approach (ICD-10-PCS; 2019-12-23)
PROC: B2111ZZ Fluoroscopy of Multiple Coronary Arteries using Low Osmolar Contrast (ICD-10-PCS; principal; 2019-12-23 08:40)
PROC: 02100Z9 Bypass Coronary Artery, One Artery from Left Internal Mammary, Open Approach (ICD-10-PCS; 2019-12-27)
PROC: 021109W Bypass Coronary Artery, Two Arteries from Aorta with Autologous Venous Tissue, Open Approach (ICD-10-PCS; 2019-12-27)
PROC: 06BP4ZZ Excision of Right Saphenous Vein, Percutaneous Endoscopic Approach (ICD-10-PCS; 2019-12-27)
PROC: 5A02210 Assistance with Cardiac Output using Balloon Pump, Continuous (ICD-10-PCS; 2019-12-27)
PROC: B24BZZ4 Ultrasonography of Heart with Aorta, Transesophageal (ICD-10-PCS; 2019-12-27)
PROC: 5A1221Z Performance of Cardiac Output, Continuous (ICD-10-PCS; 2019-12-27)
PROC: 5A1955Z Respiratory Ventilation, Greater than 96 Consecutive Hours (ICD-10-PCS; 2019-12-27)
PROC: 0BH17EZ Insertion of Endotracheal Airway into Trachea, Via Natural or Artificial Opening (ICD-10-PCS; 2019-12-27)
PROC: 05HY33Z Insertion of Infusion Device into Upper Vein, Percutaneous Approach (ICD-10-PCS; 2020-01-01)
PROC: 0B9F8ZX Drainage of Right Lower Lung Lobe, Via Natural or Artificial Opening Endoscopic, Diagnostic (ICD-10-PCS; 2020-01-02)
DX: I21.4 Non-ST elevation (NSTEMI) myocardial infarction (principal); I50.21 Acute systolic (congestive) heart failure; J18.9 Pneumonia, unspecified organism; R40.2214 Coma scale, best verbal response, none, 24 hours or more after hospital admission; R40.2124 Coma scale, eyes open, to pain, 24 hours or more after hospital admission; I25.10 Atherosclerotic heart disease of native coronary artery without angina pectoris; I25.5 Ischemic cardiomyopathy; E78.5 Hyperlipidemia, unspecified; E11.21 Type 2 diabetes mellitus with diabetic nephropathy; E11.40 Type 2 diabetes mellitus with diabetic neuropathy, unspecified; D64.9 Anemia, unspecified; N18.9 Chronic kidney disease, unspecified; R40.2354 Coma scale, best motor response, localizes pain, 24 hours or more after hospital admission